=== PATIENT | female | born 1960 | race Caucasian/White ===

== ENCOUNTER 2016-07-11 07:07 | Day surgery (SDC) | payer OTHER ==
[2016-07-11 07:54] VITALS: BMI 22.6
[2016-07-11] MEDS ORDERED: PROPOFOL 20 ML ONE ×2 (08:22)
[2016-07-11] MEDS ORDERED: LIDOCAINE HCL 2% (20ML MULTI-DOSE VIAL) NR ONE (08:38)
[2016-07-11] MEDS ORDERED: DEXAMETHASONE SOD PHOSPHATE 10 MG/1 ML VIAL ONE (09:07)
[2016-07-11 09:24] VITALS: TEMP 97.5
[2016-07-11 15:38] VITALS: BP 136/76; PULSE 90
--- NOTE | 2016-07-12 11:41 | PATH ---
Surgical Pathology Report Patient Name: JAMIL TATE [facility]. Rec. #: [id number] /Age/Gender: 1960 (Age: 55) / F Account: [id number] Location: [facility]-ENDOSCOPY Taken: 07/11/2016 Received: 07/11/2016 Reported: 07/12/2016 Physicians: Harry Alcantar M.D. Specimen(s) Received A: BX DUODENUM B: BX BODY OF STOMACH ERYTHEMA C: BX DISTAL ESOPHAGUS Clinical History History of Huitron's esophagus Normal EG junction, erythema in body, gastritis Final Diagnosis A. DUODENUM, BIOPSY: DUODENAL MUCOSA WITH NO PATHOLOGIC CHANGES. NO HISTOLOGIC EVIDENCE OF GLUTEN SENSITIVE ENTEROPATHY (CELIAC SPRUE) IDENTIFIED. B. STOMACH, BODY, BIOPSY: GASTRIC FUNDIC MUCOSA WITH FOCAL MILD CHRONIC GASTRITIS. IMMUNOSTAIN FOR H. PYLORI IS NEGATIVE. C. DISTAL ESOPHAGUS, BIOPSY: SQUAMOUS AND GLANDULAR MUCOSA WITH CHRONIC INFLAMMATION AND FOCAL INTESTINAL METAPLASIA CONSISTENT WITH HUITRON'S ESOPHAGUS IN THE PROPER CLINICAL CONTEXT. NO DYSPLASIA IDENTIFIED. Electronically Signed Og Bonilla M.D. Gross Description A. Received in formalin, labeled "biopsy duodenum" are 2 arreaga, irregular portions of soft tissue averaging 0.3 cm. in greatest dimension. The specimens are submitted in toto in one cassette. B. Received in formalin, labeled "biopsy body of stomach" are 2 arreaga, irregular portions of soft tissue averaging 0.4 cm. in greatest dimension. The specimens are submitted in toto in one cassette. C. Received in formalin, labeled "biopsy distal esophagus" are 3 arreaga, irregular portions of soft tissue ranging from 0.3-0.4 cm. in greatest dimension. The specimens are submitted in toto in one cassette. /07/11/2016 saudi07/11/2016
== END 2016-07-11 11:05 | disposition home or self-care (01) ==
LOC: JASU-ENDO 07:07
PROVIDERS: ATTEND Internal Medicine Gastroenterology
PROC: 0DB68ZX Excision of Stomach, Via Natural or Artificial Opening Endoscopic, Diagnostic (ICD-10-PCS; 2016-07-11)
PROC: 0DB58ZX Excision of Esophagus, Via Natural or Artificial Opening Endoscopic, Diagnostic (ICD-10-PCS; 2016-07-11)
PROC: 0DB98ZX Excision of Duodenum, Via Natural or Artificial Opening Endoscopic, Diagnostic (ICD-10-PCS; principal; 2016-07-11 09:00)
DX: K22.70 Barrett's esophagus without dysplasia (principal); K31.89 Other diseases of stomach and duodenum
CPT/HCPCS: 88305-TC; 88342-TC

== ENCOUNTER 2016-09-29 15:12 | Emergency (ER) | payer OTHER ==
[2016-09-29 15:24] VITALS: BP 117/68; PULSE 80; TEMP 98; BMI 22.6
--- NOTE | 2016-09-29 15:47 | PDOC ---
History of Present Illness - General Chief Complaint: Head/Neck problem Stated Complaint: FACIAL NUMBNESS/ HX OF FACIAL PARALYSIS Time Seen by Provider: 09/29/16 15:34 History Source: Patient, Family - History of Present Illness Timing/Duration: 1-3 hours Past History - Past Medical History Allergies/Adverse Reactions: Allergies Allergy/AdvReac Type Severity Reaction Status Date / Time lidocaine Allergy Rash Verified 09/29/16 15:25 propofol Allergy Rash Verified 09/29/16 15:25 Home Medications: Ambulatory Orders Levothyroxine [Synthroid -] 50 mcg PO DAILY 07/21/15 Pantoprazole Sodium [Protonix] 80 mg PO DAILY 07/21/15 Simvastatin 10 mg PO HS 07/21/15 Calcium (Oyster Shell) [Os-Joe 500MG -] 1 tab PO DAILY 07/11/16 Mv-Mn/Iron/FA/Herbal Cmplx#190 [Vitamin D3 Complete Caplet] 1 each PO DAILY 04/28 [place]-3 Fatty Acids [[place]-3] 1,000 mg PO DAILY 07/11/16 CVA: Yes (TIA) GI Disorders: Yes (GERD, diverticulosis) Thyroid Disease: Yes - Surgical History Appendectomy: Yes - Psycho/Social/Smoking Cessation Hx Anxiety: No Suicidal Ideation: No Smoking Status: No Smoking History: Never smoked Have you smoked in the past 12 months: No Number of Cigarettes Smoked Daily: 0 Information on smoking cessation initiated: No Hx Alcohol Use: No Drug/Substance Use Hx: No Substance Use Type: None Hx Substance Use Treatment: No *Physical Exam - Vital Signs Last Vital Signs Temp Pulse Resp BP Pulse Ox 98 F 80 18 117/68 96 09/29/16 15:21 09/29/16 15:21 09/29/16 15:21 09/29/16 15:21 09/29/16 15:21 ED Treatment Course - LABORATORY CBC & Chemistry Diagram: 09/29/16 17:17 09/29/16 17:17 *DC/Admit/Observation/Transfer Diagnosis at time of Disposition: Right facial numbness, Numbness and tingling - Discharge Dispostion Disposition: HOME Condition at time of disposition: Good Admit: No - Patient Instructions Printed Discharge Instructions: DI for Numbness/tingling Additional Instructions: Please return to the ED immediately if you notice confusion, slurred speech, numbness in your arms or legs or chest pain. Please follow up with your PCP and tell them about your symptoms and ask for follow-up care.
--- NOTE | 2016-09-29 16:05 | PDOC ---
Attending Attestation - Resident Resident Name: Janina Murphy - ED Attending Attestation I have performed the following: I have examined & evaluated the patient, The case was reviewed & discussed with the resident, I agree w/resident's findings & plan, Exceptions are as noted NIH Stroke Scale - Last Known Well Date/Time & Onset Date Last Known Well: 09/29/16 - Initial Evaluation Level of consciousness: Alert Ask patient the month and their age: Answers both correctly Ask patient to open & close eyes; make fist and let go: Obeys both correctly Best gaze (horizontal eye movement): Normal Visual field testing: No visual field loss Facial paresis (Show teeth/raise eyebrows/close eyes tight): Normal symmetrical movement Motor Function: Left Arm: Normal Motor Function: Right Arm: Normal (extends arm 90 (or 45) degrees for 10 seconds without drift Motor Function: Left Leg: Normal (extends leg 30 degrees for 5 seconds without drift) Motor Function: Right Leg: Normal (extends leg 30 degrees for 5 seconds without drift) Limb Ataxia: No ataxia Sensory(Use pinprick test arms,legs,trunk,face/side to side): Normal Best language (Describe picture, name items, read sentences): No Aphasia Dysarthria (read several words): Normal articulation Extinction and Inattention: No abnormality - Total Score NIH Stroke Scale Score: 0
[2016-09-29 17:26] LABS: MCH 31.1 pg (25.7-33.7); MCHC 33.8 g/dl (32.0-36.0); MEAN PLT VOLUME 9.4 fl (7.5-11.1); PLATELET COUNT 235 K/MM3 (134-434); RDW 12.5 % (11.6-15.6); WHITE BLOOD COUNT 6.8 K/mm3 (4.0-10.0)
[2016-09-29 17:56] LABS: ANION GAP 9 (8-16); CO2 26 mmol/L (21-32); CREATININE 0.7 mg/dL (0.55-1.02); GLUCOSE,RANDOM 129 mg/dL (74-106)
== END 2016-09-29 18:15 | disposition home or self-care (01) ==
LOC: JER 15:12
DX: R20.0 Anesthesia of skin (principal); R20.2 Paresthesia of skin; Z86.73 Personal history of transient ischemic attack (TIA), and cerebral infarction without residual deficits; K21.9 Gastro-esophageal reflux disease without esophagitis; E07.9 Disorder of thyroid, unspecified
CPT/HCPCS: 36415; 70450-TC; 80048; 85027; 99282-25

== ENCOUNTER 2016-11-05 23:51 | Inpatient (IN) | payer OTHER ==
[2016-11-06 00:11] VITALS: BMI 23.3
[2016-11-06] MEDS ORDERED: SODIUM CHLORIDE 0.9% 1000 ML INFUS.BAG IV STA (00:43)
--- NOTE | 2016-11-06 01:54 | PDOC ---
History of Present Illness - General History Source: Patient Exam Limitations: No Limitations - History of Present Illness Initial Comments: 11/06/16 01:54 The patient is a 56 year old female with a significant past medical history of Pike Palsy and diverticulitis who presents to the ED with complaints of fever since earlier today. The patient reports a fever of 102 F earlier today with chills and headache. She reports taking tylenol 3 times throughout the day, last dosage at 11 pm, with slight relief of present symptoms. Patient also reports a diffuse burning-like sensation in her abdomen and tingling in her bilateral legs. Patient also reports she is on her 5th day of antibiotics for a UTI and reports dysuria and urinary frequency. Denies nausea, vomiting, or diarrhea. Denies chest pain or shortness of breath. Denies any other symptoms. Surgical hx: Appendectomy, thyroid removal <Arslan Faith - Last Filed: 11/06/16 01:54> <Nasrin Wen - Last Filed: 11/06/16 02:06> <Nasreen Kuhn - Last Filed: 11/06/16 06:49> - General Chief Complaint: SIRS, Suspected/Possible Stated Complaint: FEVER Time Seen by Provider: 11/06/16 00:19 Past History <Arslan Faith - Last Filed: 11/06/16 01:54> - Past Medical History CVA: Yes (TIA) GI Disorders: Yes (GERD, diverticulosis) Thyroid Disease: Yes - Surgical History Appendectomy: Yes - Psycho/Social/Smoking Cessation Hx Anxiety: No Suicidal Ideation: No Smoking Status: No Smoking History: Never smoked Have you smoked in the past 12 months: No Number of Cigarettes Smoked Daily: 0 Hx Alcohol Use: No Drug/Substance Use Hx: No Substance Use Type: None Hx Substance Use Treatment: No <Nasrin Wen - Last Filed: 11/06/16 02:06> <Nasreen Kuhn - Last Filed: 11/06/16 06:49> - Past Medical History Allergies/Adverse Reactions: Allergies Allergy/AdvReac Type Severity Reaction Status Date / Time lidocaine Allergy Rash Verified 11/06/16 00:09 propofol Allergy Rash Verified 11/06/16 00:09 Home Medications: Ambulatory Orders Levothyroxine [Synthroid -] 50 mcg PO DAILY 05/11/16 Pantoprazole Sodium [Protonix] 80 mg PO DAILY 07/21/15 Simvastatin 10 mg PO HS 07/21/15 Calcium (Oyster Shell) [Os-Joe 500MG -] 1 tab PO DAILY 07/11/16 Mv-Mn/Iron/FA/Herbal Cmplx#190 [Vitamin D3 Complete Caplet] 1 each PO DAILY 04/28 [place]-3 Fatty Acids [[place]-3] 1,000 mg PO DAILY 07/11/16 Review of Systems - Review of Systems Able to Perform ROS?: Yes Comments:: 11/06/16 01:54 CONSTITUTIONAL: + fever, chills No reported:,Diaphoresis, Generalized Weakness, Malaise, Loss of Appetite HEENT: No reported: Rhinorrhea, Nasal Congestion, Throat Pain, Throat Swelling, Difficulty Swallowing, Mouth Swelling, Ear Pain, Eye Pain, Visual Changes CARDIOVASCULAR: No reported: Chest Pain, Syncope, Palpitations, Irregular Heart Rate, Lightheadedness, Peripheral Edema RESPIRATORY: No reported: Cough, Shortness of Breath, SOB with Exertion, Orthopnea, Wheezing , Stridor, Hemoptysis GASTROINTESTINAL: + abdominal pain No reported: Abdominal Distension, Nausea, Vomiting, Diarrhea, Constipation, Melena, Hematochezia GENITOURINARY: + dysuria, frequency No reported: Urgency, Hesitancy, Flank Pain, Genital Pain MUSCULOSKELETAL: No reported: Myalgia, Arthralgia, Joint Swelling, Back pain, Neck Pain SKIN: No reported: Rash, Itching, Pallor HEMEATOLOGIC/IMMUNOLOGIC: No reported: Easy Bleeding, Easy Bruising, Lymphadenopathy, Frequent infections ENDOCRINE: No reported: Unexplained Weight Gain, Unexplained Weight Loss, Heat Intolerance , Cold Intolerance NEUROLOGIC: + headache, leg tingling No reported:, Paresthesias, Vertigo, Lightheadedness, Unsteady Gait, Seizure, Mental Status Changes, Incontinence PSYCHIATRIC: No reported: Anxiety, Depression All Other Systems: Reviewed and Negative <Arslan Faith - Last Filed: 11/06/16 01:54> *Physical Exam - Vital Signs Last Vital Signs Temp Pulse Resp BP Pulse Ox 100.3 F H 111 H 20 132/79 98 11/06/16 00:09 11/06/16 00:09 11/06/16 00:09 11/06/16 00:09 11/06/16 00:09 - Physical Exam Comments: 11/06/16 01:55 GENERAL: Well developed, well nourished. Awake and alert. No acute distress. HEENT: Normocephalic, atraumatic. PERRLA, EOMI. No conjunctival pallor. Sclera are non- icteric. Moist mucous membranes. Oropharynx is clear. NECK: Supple. Full ROM. No JVD. Carotid pulses 2+ and symmetric, without bruits. No thyromegaly. No lymphadenopathy. CARDIOVASCULAR:+ tachycardic, Regular rhythm. No murmurs, rubs, or gallops. Distal pulses are 2+ and symmetric. PULMONARY: No evidence of respiratory distress. Lungs clear to auscultation bilaterally. No wheezing, rales or rhonchi. ABDOMINAL: Soft. Non-tender. Non-distended. No rebound or guarding. No organomegaly. Normoactive bowel sounds. MUSCULOSKELETAL Normal range of motion at all joints. No bony deformities or tenderness. No CVA tenderness. EXTREMITIES: No cyanosis. No clubbing. No edema. No calf tenderness. SKIN: + Warm to touch, and dry. Normal capillary refill. No rashes. No jaundice. NEUROLOGICAL: Alert, awake, appropriate. Cranial nerves 2-12 intact. No deficits to light touch and temperature in face, upper extremities and lower extremities. No motor deficits in the in face, upper extremities and lower extremities. Normoreflexic in the upper and lower extremities. Normal speech. Toes are down- going bilaterally. Gait is normal without ataxia. PSYCHIATRIC: Cooperative. Good eye contact. Appropriate mood and affect. <Arslan Faith - Last Filed: 11/06/16 01:54> - Vital Signs Last Vital Signs Temp Pulse Resp BP Pulse Ox 100.3 F H 111 H 20 132/79 98 11/06/16 00:09 11/06/16 00:09 11/06/16 00:09 11/06/16 00:09 11/06/16 00:09 <Nasrin Wen - Last Filed: 11/06/16 02:06> - Vital Signs Last Vital Signs Temp Pulse Resp BP Pulse Ox 100.3 F H 111 H 20 132/79 98 11/06/16 00:09 11/06/16 00:09 11/06/16 00:09 11/06/16 00:09 11/06/16 00:09 <Nasreen Kuhn - Last Filed: 11/06/16 06:49> ED Treatment Course - RADIOLOGY Radiology Studies Ordered: Category Date Time Status CHEST X-RAY PORTABLE* [RAD] Stat Radiology 11/06/16 00:43 Taken <Nasrin Wen - Last Filed: 11/06/16 02:06> - LABORATORY CBC & Chemistry Diagram: 11/06/16 02:30 11/06/16 02:30 - ADDITIONAL ORDERS Additional order review: Laboratory Results 11/06/16 11/06/16 11/06/16 02:30 02:30 02:30 INR PTT (Actin FS) Sodium 139 Potassium 3.3 L Chloride 106 Carbon Dioxide 24 Anion Gap 9 BUN 10 D Creatinine 0.7 Creat Clearance w eGFR > 60 Random Glucose 126 H D Lactic Acid 0.7 Calcium 8.5 Total Bilirubin 0.6 AST 23 D ALT 28 Alkaline Phosphatase 76 Creatine Kinase 235 H Creatine Kinase Index 0.4 CK-MB (CK-2) < 1.000 Troponin I < 0.02 Total Protein 7.2 Albumin 3.4 Urine Color Yellow Urine Appearance Slcloudy Urine pH 6.0 Urine Protein 1+ H Urine Glucose (UA) Negative Urine Ketones Negative Urine Blood 3+ H Urine Nitrite Negative Urine Bilirubin Negative Urine Urobilinogen Negative Ur Leukocyte Esterase 1+ H Urine RBC 26 Urine WBC 8 Ur Epithelial Cells Rare Urine Bacteria Moderate Hyaline Casts 3 Urine Mucus Rare 11/06/16 02:30 INR 1.18 H PTT (Actin FS) 29.9 Sodium Potassium Chloride Carbon Dioxide Anion Gap BUN Creatinine Creat Clearance w eGFR Random Glucose Lactic Acid Calcium Total Bilirubin AST ALT Alkaline Phosphatase Creatine Kinase Creatine Kinase Index CK-MB (CK-2) Troponin I Total Protein Albumin Urine Color Urine Appearance Urine pH Urine Protein Urine Glucose (UA) Urine Ketones Urine Blood Urine Nitrite Urine Bilirubin Urine Urobilinogen Ur Leukocyte Esterase Urine RBC Urine WBC Ur Epithelial Cells Urine Bacteria Hyaline Casts Urine Mucus 11/06/16 02:30 RBC 4.25 MCV 92.2 MCHC 33.9 RDW 12.6 MPV 9.3 Neutrophils % 86.4 H D Lymphocytes % 6.0 L D Monocytes % 7.3 Eosinophils % 0.0 D Basophils % 0.3 - Medications Given in the ED: ED Medications Discontinued Medications Generic Name Dose Route Start Last Admin Trade Name Freq PRN Reason Stop Dose Admin Sodium Chloride 1,270 ml 11/06/16 00:43 11/06/16 03:07 Normal Saline - IV 11/06/16 00:44 1,270 ml ONCE STA Administration <Nasreen Kuhn - Last Filed: 11/06/16 06:49> Medical Decision Making - Medical Decision Making 11/06/16 02:06 56-year-old female has had fever for one day. States that she is currently being treated for a urinary tract infection. - About 5 days ago she was placed on cefuroxime for urinary tract infection Patient has complaint of fever, chills, numbness of both legs, abdominal pain, dysuria She was seen here on September 29 for facial numbness, CAT scan of her head at that time was negative Plan is to have CBC, chemistry, urinalysis done <Nasrin Wen - Last Filed: 11/06/16 02:06> - Medical Decision Making 11/06/16 06:48 Pt failed outpatient therapy for her UTI; 5 days of abx and she still has dysuria and burning sensation. She will be admitted for IV abx. <Nasreen Kuhn - Last Filed: 11/06/16 06:49> *DC/Admit/Observation/Transfer - Attestations Scribe Attestion: 11/06/16 01:55 Documentation prepared by Arslan Faith, acting as medical scientist for Nasrin Wen MD <Arslan Faith - Last Filed: 11/06/16 01:54> <Nasrin Wen - Last Filed: 11/06/16 02:06> - Discharge Dispostion Admit: Yes <Nasreen Kuhn - Last Filed: 11/06/16 06:49> Diagnosis at time of Disposition: Urinary frequency, UTI (urinary tract infection), Cystitis, Fever
[2016-11-06 02:47] LABS: URINE APPEARANCE SLCLOUDY; URINE BILIRUBIN NEGATIVE (NEGATIVE); URINE BLOOD 3+ (NEGATIVE); URINE COLOR YELLOW; URINE GLUCOSE (UA) NEGATIVE (NEGATIVE); URINE KETONE NEGATIVE (NEGATIVE); URINE NITRITE NEGATIVE (NEGATIVE); URINE UROBILINOGEN NEGATIVE mg/dL (0.2-1.0)
[2016-11-06 02:48] LABS: BASOPHIL 0.3 % (0-2.0); MCH 31.2 pg (25.7-33.7); MCHC 33.9 g/dl (32.0-36.0); MEAN CELL VOLUME 92.2 fl (80-96); MEAN PLT VOLUME 9.3 fl (7.5-11.1); NEUTROPHILS 86.4 % (42.8-82.8); PLATELET COUNT 223 K/MM3 (134-434); RDW 12.6 % (11.6-15.6); WHITE BLOOD COUNT 16.7 K/mm3 (4.0-10.0)
[2016-11-06 02:54] LABS: URINE LEUK ESTERASE 1+ (NEGATIVE); URINE PROTEIN 1+ (NEGATIVE)
[2016-11-06 02:58] LABS: URINE BACTERIA MODERATE /hpf (NONE SEEN); URINE HYALINE CAST 3 /lpf; URINE MUCUS RARE; URINE RBC 26 /hpf (0-3); URINE WBC 8 /hpf (3-5)
[2016-11-06 02:59] LABS: INR 1.18 (0.82-1.09)
[2016-11-06 03:01] LABS: ACTIVATED PTT 29.9 SECONDS (26.9-34.4)
[2016-11-06 03:09] LABS: ALBUMIN 3.4 g/dl (3.4-5.0); ANION GAP 9 (8-16); BILIRUBIN,TOTAL 0.6 mg/dL (0.2-1.0); CALCIUM 8.5 mg/dL (8.5-10.1); CO2 24 mmol/L (21-32); CREATININE 0.7 mg/dL (0.55-1.02); GLUCOSE,RANDOM 126 mg/dL (74-106); SGOT/AST 23 U/L (15-37); SGPT/ALT 28 U/L (12-78); TOT PROT 7.2 g/dl (6.4-8.2)
[2016-11-06 03:11] LABS: ALK PHOS 76 U/L (45-117); CPK 235 IU/L (26-192); TROPONIN I < 0.02 ng/ml (0.00-0.05)
[2016-11-06] MEDS ORDERED: PIPERACILLIN/TAZOB 3.375 GM 3.375 GM in DEXTROSE 5%-WATER - 50 ML IVPB ONE (03:45)
[2016-11-06] MEDS ORDERED: LEVOFLOXACIN 500 MG IVPB 100 ML IVPB ONE ×2 (03:47→04:48)
[2016-11-06] MEDS ORDERED: LEVOFLOXACIN 750 MG IVPB 150 ML IVPB ONE (04:46)
--- NOTE | 2016-11-06 05:59 | HP ---
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 Pt reports a Tmax of 102F. She took Tylenol 3 times (last dose at 11pm) and the medication helped improve her symptoms. Pt presents to ER with chills, headache, burning sensation diffusely in abdomen, and marjorie LE tingling. All of these symptoms are new as of this evening. Pt reports being diagnosed with a UTI 5 days ago and taking Cefuroxime as directed. Denies chest pain, palpitations, SOB, nausea, vomiting, diarrhea. ER course was notable for: (1) fever of 100.3F upon arrival has resolved (2) Levaquin, Zosyn (3) CXR pending PAST MEDICAL HISTORY: Sage's Palsy/CVA/TIA GERD diverticulosis thyroid disease hypercholesterolemia PAST SURGICAL HISTORY: appendectomy thyroidectomy 2 yrs ago Social History: Smoking: never smoker Alcohol: none Drugs: none Allergies lidocaine Allergy (Verified 11/06/16 00:09) Rash propofol Allergy (Verified 11/06/16 00:09) Rash HOME MEDICATIONS: Home Medications Medication Instructions Recorded Levothyroxine [Synthroid -] 50 mcg PO DAILY 07/21/15 Pantoprazole Sodium [Protonix] 80 mg PO DAILY 07/21/15 Simvastatin 10 mg PO HS 07/21/15 Calcium (Oyster Shell) [Os-Joe 1 tab PO DAILY 07/11/16 500MG -] Mv-Mn/Iron/FA/Herbal Cmplx#190 1 each PO DAILY 07/11/16 [Vitamin D3 Complete Caplet] [place]-3 Fatty Acids [[place]-3] 1,000 mg PO DAILY 07/11/16 REVIEW OF SYSTEMS CONSTITUTIONAL: Present: fever, chills Absent: diaphoresis, generalized weakness, malaise HEENT: Absent: throat pain, ear pain, eye pain, visual changes CARDIOVASCULAR: Absent: chest pain, syncope, palpitations, irregular heart rate, lightheadedness , peripheral edema RESPIRATORY: Absent: cough, shortness of breath, dyspnea with exertion, orthopnea, wheezing, stridor, hemoptysis GASTROINTESTINAL: Present: abdominal pain - burning sensation Absent: abdominal distension, nausea, vomiting, diarrhea, constipation, melena, hematochezia GENITOURINARY: Present: dysuria, frequency Absent: urgency, hesitancy, hematuria, genital pain MUSCULOSKELETAL: Absent: myalgia, arthralgia, joint swelling, back pain, neck pain SKIN: Absent: rash, itching, pallor ENDOCRINE: Absent: unexplained weight gain, unexplained weight loss, heat intolerance, cold intolerance NEUROLOGIC: Present: headache Absent: focal weakness or paresthesias, dizziness, unsteady gait, bladder or bowel incontinence PSYCHIATRIC: Absent: anxiety, depression. PHYSICAL EXAMINATION Vital Signs - 24 hr 11/06/16 11/06/16 11/06/16 00:09 01:00 02:15 Temperature 100.3 F H 99.0 F 99.5 F Pulse Rate 111 H Pulse Rate [ 100 H 98 H Apical] Respiratory 20 18 20 Rate Blood Pressure 132/79 Blood Pressure 150/67 149/70 [Right Arm] O2 Sat by Pulse 98 99 99 Oximetry (%) 11/06/16 11/06/16 03:42 04:55 Temperature 97.5 F L 98.5 F Pulse Rate Pulse Rate [ 95 H 101 H Apical] Respiratory 20 20 Rate Blood Pressure Blood Pressure 148/66 154/86 [Right Arm] O2 Sat by Pulse 98 100 Oximetry (%) GENERAL: Awake, alert, and fully oriented, in no acute distress. HEAD: Normal with no signs of trauma. EYES: Pupils equal, round and reactive to light, extraocular movements intact, sclera anicteric, conjunctiva clear. EARS, NOSE, THROAT: Moist mucous membranes. NECK: Supple without lymphadenopathy, JVD, or masses. LUNGS: Breath sounds equal, clear to auscultation bilaterally. No wheezes, and no crackles. No accessory muscle use. HEART: Regular rate and rhythm, normal S1 and S2 without murmur, rub or gallop. ABDOMEN: Soft, nontender to palpation, not distended, normoactive bowel sounds, no guarding, no rebound, no masses. MUSCULOSKELETAL: (+) marjorie CVA tenderness, Right sided flank pain. Normal range of motion at all joints. LOWER EXTREMITIES: Warm, well-perfused. No calf tenderness. No peripheral edema. NEUROLOGICAL: Cranial nerves II-XII grossly intact. Normal speech. Normal gait. PSYCHIATRIC: Cooperative. Good eye contact. Appropriate mood and affect. SKIN: Warm, dry, normal turgor, no rashes or lesions noted. Laboratory Last Values WBC 16.7 K/mm3 (4.0-10.0) H D 11/06/16 02:30 RBC 4.25 M/mm3 (3.60-5.2) 11/06/16 02:30 Hgb 13.3 GM/dL (10.7-15.3) 11/06/16 02:30 Hct 39.1 % (32.4-45.2) 11/06/16 02:30 MCV 92.2 fl (80-96) 11/06/16 02:30 MCH 31.2 pg (25.7-33.7) 11/06/16 02:30 MCHC 33.9 g/dl (32.0-36.0) 11/06/16 02:30 RDW 12.6 % (11.6-15.6) 11/06/16 02:30 Plt Count 223 K/MM3 (134-434) 11/06/16 02:30 MPV 9.3 fl (7.5-11.1) 11/06/16 02:30 Neutrophils % 86.4 % (42.8-82.8) H D 11/06/16 02:30 Lymphocytes % 6.0 % (8-40) L D 11/06/16 02:30 Monocytes % 7.3 % (3.8-10.2) 11/06/16 02:30 Eosinophils % 0.0 % (0-4.5) D 11/06/16 02:30 Basophils % 0.3 % (0-2.0) 11/06/16 02:30 INR 1.18 (0.82-1.09) H 11/06/16 02:30 PTT (Actin FS) 29.9 SECONDS (26.9-34.4) 11/06/16 02:30 Sodium 139 mmol/L (136-145) 11/06/16 02:30 Potassium 3.3 mmol/L (3.5-5.1) L 11/06/16 02:30 Chloride 106 mmol/L (98-107) 11/06/16 02:30 Carbon Dioxide 24 mmol/L (21-32) 11/06/16 02:30 Anion Gap 9 (8-16) 11/06/16 02:30 BUN 10 mg/dL (7-18) D 11/06/16 02:30 Creatinine 0.7 mg/dL (0.55-1.02) 11/06/16 02:30 Creat Clearance w eGFR > 60 (>60) 11/06/16 02:30 Random Glucose 126 mg/dL (74-106) H D 11/06/16 02:30 Lactic Acid 0.7 mmol/L (0.4-2.0) 11/06/16 02:30 Calcium 8.5 mg/dL (8.5-10.1) 11/06/16 02:30 Total Bilirubin 0.6 mg/dL (0.2-1.0) 11/06/16 02:30 AST 23 U/L (15-37) D 11/06/16 02:30 ALT 28 U/L (12-78) 11/06/16 02:30 Alkaline Phosphatase 76 U/L (45-117) 11/06/16 02:30 Creatine Kinase 235 IU/L (26-192) H 11/06/16 02:30 Creatine Kinase Index 0.4 % (0.0-5.0) 11/06/16 02:30 CK-MB (CK-2) < 1.000 ng/mL (0.5-3.6) 11/06/16 02:30 Troponin I < 0.02 ng/ml (0.00-0.05) 11/06/16 02:30 Total Protein 7.2 g/dl (6.4-8.2) 11/06/16 02:30 Albumin 3.4 g/dl (3.4-5.0) 11/06/16 02:30 Urine Color Yellow 11/06/16 02:30 Urine Appearance Slcloudy 11/06/16 02:30 Urine pH 6.0 (5.0-8.0) 11/06/16 02:30 Urine Protein 1+ (NEGATIVE) H 11/06/16 02:30 Urine Glucose (UA) Negative (NEGATIVE) 11/06/16 02:30 Urine Ketones Negative (NEGATIVE) 11/06/16 02:30 Urine Blood 3+ (NEGATIVE) H 11/06/16 02:30 Urine Nitrite Negative (NEGATIVE) 11/06/16 02:30 Urine Bilirubin Negative (NEGATIVE) 11/06/16 02:30 Urine Urobilinogen Negative mg/dL (0.2-1.0) 11/06/16 02:30 Ur Leukocyte Esterase 1+ (NEGATIVE) H 11/06/16 02:30 Urine RBC 26 /hpf (0-3) 11/06/16 02:30 Urine WBC 8 /hpf (3-5) 11/06/16 02:30 Ur Epithelial Cells Rare /hpf (FEW) 11/06/16 02:30 Urine Bacteria Moderate /hpf (NONE SEEN) 11/06/16 02:30 Hyaline Casts 3 /lpf 11/06/16 02:30 Urine Mucus Rare 11/06/16 02:30 IMAGIN11/06/16 CXR pending, appears negative normal. ASSESSMENT/PLAN: 56yo F with PMH of Sage's Palsy, GERD, diverticulosis presents c/o fever/chills admitted to Med-Surg Observation for possible sepsis. 1) sepsis - likely 2/2 pyelonephrosis complicated UTI vs hydronephrosis vs nephrolithiasis vs diverticulitis - sepsis 2/2 tachycardia and leukocytosis with left-shift, plus UTI as suspected source of infection - pt failed outpatient antibiotics for UTI - given Zosyn and Levaquin in ER - cont. Levaquin 750mg IV daily - blood and urine cultures pending - NS @ 100 ml/hr for hydration - f/u renal US - consider ab/pelvic CT - Tylenol 650mg q4hr prn for pain (headache) or fever 2) GERD - cont. home med of Protonix 80mg PO daily 3) thyroid disease - S/P thyroidectomy - cont. home med of Synthroid 50mcg PO daily 4) hypercholesterolemia - cont. home med of Simvastatin 10mg PO HS 5) FEN - Fluids: NS @ 100 ml/hr - Electrolytes: hypokalemia noted -> supplement with 20meq KCl IVPB once. - Nutrition: npo for now 6) Prophylaxis - marjorie SCDs for DVT prophylaxis Visit type - Emergency Visit Emergency Visit: Yes ED Registration Date: 11/06/16 Care time: The patient presented to the Emergency Department on the above date and was hospitalized for further evaluation of their emergent condition. - New Patient This patient is new to me today: Yes Date on this admission: 11/06/16 - Critical Care Critical Care patient: No
--- NOTE | 2016-11-06 06:35 | PN ---
Teaching Attending Note Name of Resident: Richelle Acevedo ATTENDING PHYSICIAN STATEMENT I saw and evaluated the patient. I reviewed the resident's note and discussed the case with the resident. I agree with the resident's findings and plan as documented. SUBJECTIVE: 56 year old female that presents c/o urinary urgency , right flank pain and fever 5 days after being diagnosed with UTI and taking Keflex prescribed by PMD . PAST MEDICAL HISTORY: Sage's Palsy/CVA/TIA GERD diverticulosis thyroid disease hypercholesterolemia PAST SURGICAL HISTORY: appendectomy thyroidectomy 2 yrs ago Social History: Smoking: never smoker Alcohol: none Drugs: none OBJECTIVE: Vital Signs Temperature 98.5 F 11/06/16 04:55 Pulse Rate 101 H 11/06/16 04:55 Respiratory Rate 20 11/06/16 04:55 Blood Pressure 154/86 11/06/16 04:55 O2 Sat by Pulse Oximetry (%) 100 11/06/16 04:55 EYES: Pupils equal, round and reactive to light, extraocular movements intact, sclera anicteric, conjunctiva clear. EARS, NOSE, THROAT: Moist mucous membranes. NECK: Supple without lymphadenopathy, JVD, or masses. LUNGS: Breath sounds equal, clear to auscultation bilaterally. No wheezes, and no crackles. No accessory muscle use. HEART: Regular rate and rhythm, normal S1 and S2 without murmur, rub or gallop. ABDOMEN: Soft, nontender to palpation, not distended, normoactive bowel sounds, no guarding, no rebound, no masses. MUSCULOSKELETAL: (+) R CVA tenderness Normal range of motion at all joints. LOWER EXTREMITIES: Warm, well-perfused. No calf tenderness. No peripheral edema. CBC, BMP 11/06/16 02:30 11/06/16 02:30 ASSESSMENT AND PLAN: 1. Suspected acute pyelonephritis vs complicated UTI - failure of outpatient antibiotics - IV levaquin - US renal - cultures 2. Sepsis 2/ #1 - IVF 3. Hypokalemia -supplement
[2016-11-06] MEDS ORDERED: POTASSIUM CHLORIDE 20 MEQ PREMIX IVPB 100 ML IVPB ONE (06:41)
[2016-11-06] MEDS: SODIUM CHLORIDE 1,000 ML IV SCH ×2 (06:59→13:19)
[2016-11-06] MEDS ORDERED: PIPERACILLIN/TAZOB 3.375 GM 50 ML IVPB ONE (07:01)
[2016-11-06] MEDS ORDERED: KCL 10 MEQ IVPB 200 ML IVPB ONE (07:01)
[2016-11-06 08:27] LABS: VENOUS PH 7.29 (7.32-7.42)
[2016-11-06 08:28] LABS: VENOUS BLOOD GAS HCO3 23.6 meq/L (19-25)
[2016-11-06] MEDS ORDERED: PANTOPRAZOLE 40 MG TABLET (FP) PO SCH (10:00)
[2016-11-06] MEDS ORDERED: CALCIUM (OYSTER SHELL) 500 MG TABLET (FP) PO SCH (10:00)
--- NOTE | 2016-11-06 10:18 | PN ---
Progress Note, Physician Chief Complaint: ID Full noted dictated Fever and chills over the few days. She sees Dr Foley urology Has been on oral cefuroxime most recently Last seen 11/01. 6 month history of urinary symptoms CT abd was normal cytolgy neg. E Coli sensitive to Ceftin No improvement on ceftin . Cystoscopy hemmoragic cystitis dilated urethra so ceftin once daily. No masses seen Liver hemangioma - Current Medication List Current Medications: Active Medications Acetaminophen (Tylenol -) 650 mg PO Q4H PRN PRN Reason: FEVER OR PAIN Atorvastatin Calcium (Lipitor -) 10 mg PO HS [facility] Calcium Carbonate (Os-Joe 500mg -) 500 mg PO DAILY [facility] Sodium Chloride (Normal Saline -) 1,000 mls @ 100 mls/hr IV ASDIR [facility] Last Admin: 11/06/16 06:59 Dose: 100 mls/hr Levofloxacin (Levaquin 750 Mg Premixed Ivpb -) 150 mls @ 100 mls/hr IVPB DAILY [facility] Levothyroxine Sodium (Synthroid -) 50 mcg PO DAILY@0700 [facility] Pantoprazole Sodium (Protonix -) 80 mg PO DAILY [facility] - Objective Vital Signs: Vital Signs Temperature 98.5 F 11/06/16 04:55 Pulse Rate 99 H 11/06/16 06:39 Respiratory Rate 19 11/06/16 06:39 Blood Pressure 140/70 11/06/16 06:39 O2 Sat by Pulse Oximetry (%) 100 11/06/16 06:39 Gastrointestinal: Yes: WNL, Normal Bowel Sounds, Soft, Other (Lower abd pain bilaterall and suprapubic). No: Tenderness, Tenderness, Rebound Genitourinary: Yes: CVA Tenderness - Left, CVA Tenderness - Right Labs: INR, PTT INR 1.18 (0.82-1.09) H 11/06/16 02:30 Problem List - Problems (1) UTI (urinary tract infection) Code(s): N39.0 - URINARY TRACT INFECTION, SITE NOT SPECIFIED (2) Pyelonephritis Code(s): N12 - TUBULO-INTERSTITIAL NEPHRITIS, NOT SPCF ACUTE OR CHRONIC Assessment/Plan Laboratory Tests 11/06/16 11/06/16 11/06/16 02:30 02:30 02:30 WBC 16.7 H D Hgb 13.3 Hct 39.1 Plt Count 223 Neutrophils % 86.4 H D Creat Clearance w eGFR > 60 Ur Leukocyte Esterase 1+ H Urine RBC 26 Urine WBC 8 Urine Bacteria Moderate Assessment Pyelonephritis Recent cysto hemmoragic cystitis urethral dilatation Assume resistant organism Plan Zosyn pending c/s Nares screen if negative stop isolation Kathi HARTLEY
[2016-11-06 10:42] LABS: BASOPHIL 0.3 % (0-2.0); MCH 30.7 pg (25.7-33.7); MCHC 33.3 g/dl (32.0-36.0); MEAN CELL VOLUME 92.3 fl (80-96); MEAN PLT VOLUME 9.1 fl (7.5-11.1); PLATELET COUNT 199 K/MM3 (134-434); RDW 12.5 % (11.6-15.6); WHITE BLOOD COUNT 16.3 K/mm3 (4.0-10.0)
[2016-11-06 11:00] LABS: ANION GAP 10 (8-16); CALCIUM 7.8 mg/dL (8.5-10.1); CO2 22 mmol/L (21-32); CREATININE 0.6 mg/dL (0.55-1.02); GLUCOSE,RANDOM 135 mg/dL (74-106)
--- NOTE | 2016-11-06 11:09 | CONS ---
DATE OF CONSULTATION: HISTORY: This is [facility] 56[facility] I am asked to see for evaluation of fever to 102 at home and chills for which she had taken Tylenol on the day prior to admission. She also noted complaints of lower abdominal discomfort. The patient has a history of having seen Dr. Foley, Urology, in [place]. Quite recently she underwent a cystoscopy with findings of hemorrhagic cystitis. A urine culture was done, which showed Escherichia coli 40,000-50,000 colony count, and she was given oral cefuroxime. Cytology was negative for malignancy. He also did a CAT scan of the abdomen, which showed normal kidneys and no intra-abdominal pathology, stones, or hydronephrosis. Ceftin was recently reduced to once a day I assume in an effort to prophylax for recurrent UTIs, which the patient has had for some time. Over the last 2-3 days, the patient now develops fever and chills. She denies any dysuria, gross hematuria, but does have hematuria on her urinalysis. She was empirically treated with antibiotics here with levofloxacin and a dose of piperacillin and tazobactam. She is not diabetic and has no history of recent travel to [facility], outdoor exposure to ticks, respiratory complaints. No one else at home, primarily her and family, are ill. 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 HIV status is unknown. PAST MEDICAL HISTORY: Includes Sage palsy, GERD, diverticulosis, hypothyroidism, hyperlipidemia, status post appendectomy and thyroidectomy. MEDICATIONS: Levothyroxine, Protonix, simvastatin, calcium, omega-3 fatty acids. ALLERGIES: PROPOFOL. SOCIAL HISTORY: Noncontributory. No ETOH history. See present illness. FAMILY HISTORY: Reviewed and noncontributory. REVIEW OF SYSTEMS: Respiratory: No cough, shortness of breath, hemoptysis. Cardiac: No chest pain, palpitations, syncope. Gastrointestinal: No nausea, vomiting, hematemesis, blood per rectum, diarrhea. Genitourinary: Lower abdominal discomfort. No incontinence or gross hematuria. PHYSICAL EXAMINATION: General: She is an alert female in no acute distress. Vital Signs: Temperature max on admission 100.3, currently 98.5, pulse 99, blood pressure 147, respirations 19. Neck: Supple without adenopathy. Lungs: Clear to percussion and auscultation. Heart: S1, S2. Regular rhythm without audible murmur. Abdomen: Not distended. Positive bowel sounds. Soft. No rebound. Mild tenderness noted in the lower quadrants and suprapubic area. Extremities: Bilateral costovertebral angle tenderness left greater than right. LABORATORY DATA: The white count is 16.7, hemoglobin 13.3, platelets 223. INR 1.18, BUN 10, creatinine 0.7. Liver enzymes within normal limits. Urinalysis: 1+ leukocyte esterase, 26 RBCs, 8 WBCs, moderate bacteria. Blood and urine culture is pending. Renal sonogram: Bilateral normal-appearing kidneys. ASSESSMENT: A 56-year-old female with a history of recent hemorrhagic cystitis status post urethral dilatation and recurrent urinary tract infections for which she has been on once daily cefuroxime as per Dr. Foley. Recent Escherichia coli in urine culture. Previous history of methicillin-resistant Staphylococcus aureus in a soft tissue infection in her foot October 03, 2012 now no longer an issue. Would assume possible resistant organism with the diagnosis of pyelonephritis and recurrent urinary tract infection. Recent CAT scan done shows no acute pathology. PLAN: Treat empirically with Zosyn 4.5 g IV every 8 hours pending blood and urine cultures. The case was discussed in detail with Dr. Foley to appraise him of her admission to [facility] as well as to obtain further history. We will do an HIV test for completeness. JEANNIE RUSH M.D. [id number]
[2016-11-06 11:16] LABS: INR 1.36 (0.82-1.09)
[2016-11-06 11:32] LABS: CPK 182 IU/L (26-192)
[2016-11-06 12:34] LABS: HIV 1 & 2 AB NEGATIVE; HIV 1 AGp24 NEGATIVE
[2016-11-06] MEDS: LEVOTHYROXINE NA 50 MCG TABLET (FP) PO SCH (12:39)
[2016-11-06] MEDS: PANTOPRAZOLE 40 MG TABLET (FP) PO SCH (12:40)
[2016-11-06] MEDS: CALCIUM 500MG/VIT-D 200 UNITS COMBO TABLET (FP) PO SCH (13:16)
[2016-11-06] MEDS: ACETAMINOPHEN 325 MG TABLET (FP) PO PRN ×2 (15:26→21:22)
--- NOTE | 2016-11-06 16:56 | PN ---
Progress Note, Physician Chief Complaint: Pt lying in bed,Mild fever present. H/o recurrent UTI and h/o Cystoscopy and hemorrhagic cystitis and failure to OP antibiotics ID note appreciated Pt is on Zosyn renal u/s both Kidney NL - Current Medication List Current Medications: Active Medications Acetaminophen (Tylenol -) 650 mg PO Q4H PRN PRN Reason: FEVER OR PAIN Last Admin: 11/06/16 15:26 Dose: 650 mg Atorvastatin Calcium (Lipitor -) 10 mg PO [facility] Calcium Carbonate/Cholecalciferol (Os-Joe 500+D -) 500 tab PO DAILY [facility] Last Admin: 11/06/16 13:16 Dose: 1 tab Sodium Chloride (Normal Saline -) 1,000 mls @ 100 mls/hr IV ASDIR [facility] Last Admin: 11/06/16 13:19 Dose: 100 mls/hr Piperacillin Sod/Tazobactam (Sod 4.5 gm/ Dextrose) 100 mls @ 200 mls/hr IVPB Q8H-IV [facility] PRN Reason: Protocol Levothyroxine Sodium (Synthroid -) 50 mcg PO DAILY@0700 [facility] Last Admin: 11/06/16 12:39 Dose: 50 mcg Pantoprazole Sodium (Protonix -) 40 mg PO DAILY [facility] Last Admin: 11/06/16 12:40 Dose: 40 mg - Objective Vital Signs: Vital Signs Temperature 100.8 F H 11/06/16 14:08 Pulse Rate 95 H 11/06/16 14:08 Respiratory Rate 20 11/06/16 08:45 Blood Pressure 146/78 11/06/16 14:08 O2 Sat by Pulse Oximetry (%) 97 11/06/16 08:45 Constitutional: Yes: No Distress Eyes: Yes: Conjunctiva Clear HENT: Yes: Atraumatic, Normocephalic Neck: Yes: Supple, Trachea Midline Cardiovascular: Yes: Regular Rate and Rhythm Respiratory: Yes: Regular, CTA Bilaterally Gastrointestinal: Yes: Normal Bowel Sounds, Soft Genitourinary: Yes: Other (Dysuria present) Musculoskeletal: Yes: WNL Extremities: Yes: WNL Edema: No Peripheral Pulses WNL: Yes Neurological: Yes: WNL, Alert ...Motor Strength: WNL Psychiatric: Yes: WNL, Alert Labs: INR, PTT INR 1.36 (0.82-1.09) H 11/06/16 10:30 Laboratory Results - last 24 hr 11/06/16 11/06/16 11/06/16 02:30 02:30 02:30 WBC 16.7 H D RBC 4.25 Hgb 13.3 Hct 39.1 MCV 92.2 MCH 31.2 MCHC 33.9 RDW 12.6 Plt Count 223 MPV 9.3 Neutrophils % 86.4 H D Lymphocytes % 6.0 L D Monocytes % 7.3 Eosinophils % 0.0 D Basophils % 0.3 INR 1.18 H PTT (Actin FS) 29.9 VBG pH POC VBG pCO2 POC VBG pO2 Mixed VBG HCO3 Sodium Potassium Chloride Carbon Dioxide Anion Gap BUN Creatinine Creat Clearance w eGFR Random Glucose Lactic Acid Calcium Total Bilirubin AST ALT Alkaline Phosphatase Creatine Kinase Creatine Kinase Index CK-MB (CK-2) Troponin I Total Protein Albumin Urine Color Yellow Urine Appearance Slcloudy Urine pH 6.0 Ur Specific [place] 1.010 Urine Protein 1+ H Urine Glucose (UA) Negative Urine Ketones Negative Urine Blood 3+ H Urine Nitrite Negative Urine Bilirubin Negative Urine Urobilinogen Negative Ur Leukocyte Esterase 1+ H Urine RBC 26 Urine WBC 8 Ur Epithelial Cells Rare Urine Bacteria Moderate Hyaline Casts 3 Urine Mucus Rare HIV 1&2 Antibody Screen HIV P24 Antigen 11/06/16 11/06/16 11/06/16 02:30 02:30 08:00 WBC RBC Hgb Hct MCV MCH MCHC RDW Plt Count MPV Neutrophils % Lymphocytes % Monocytes % Eosinophils % Basophils % INR PTT (Actin FS) VBG pH 7.29 L POC VBG pCO2 50.2 POC VBG pO2 39.4 Mixed VBG HCO3 23.6 Sodium 139 Potassium 3.3 L Chloride 106 Carbon Dioxide 24 Anion Gap 9 BUN 10 D Creatinine 0.7 Creat Clearance w eGFR > 60 Random Glucose 126 H D Lactic Acid 0.7 Calcium 8.5 Total Bilirubin 0.6 AST 23 D ALT 28 Alkaline Phosphatase 76 Creatine Kinase 235 H Creatine Kinase Index 0.4 CK-MB (CK-2) < 1.000 Troponin I < 0.02 Total Protein 7.2 Albumin 3.4 Urine Color Urine Appearance Urine pH Ur Specific [place] Urine Protein Urine Glucose (UA) Urine Ketones Urine Blood Urine Nitrite Urine Bilirubin Urine Urobilinogen Ur Leukocyte Esterase Urine RBC Urine WBC Ur Epithelial Cells Urine Bacteria Hyaline Casts Urine Mucus HIV 1&2 Antibody Screen HIV P24 Antigen 11/06/16 11/06/16 11/06/16 10:30 10:30 10:30 WBC 16.3 H RBC 3.89 Hgb 11.9 D Hct 35.9 MCV 92.3 MCH 30.7 MCHC 33.3 RDW 12.5 Plt Count 199 MPV 9.1 Neutrophils % 89.0 H Lymphocytes % 5.3 L Monocytes % 5.4 Eosinophils % 0.0 Basophils % 0.3 INR 1.36 H PTT (Actin FS) VBG pH POC VBG pCO2 POC VBG pO2 Mixed VBG HCO3 Sodium 141 Potassium 3.6 Chloride 109 H Carbon Dioxide 22 Anion Gap 10 BUN 8 Creatinine 0.6 Creat Clearance w eGFR Random Glucose 135 H Lactic Acid Calcium 7.8 L Total Bilirubin AST ALT Alkaline Phosphatase Creatine Kinase Creatine Kinase Index CK-MB (CK-2) Troponin I Total Protein Albumin Urine Color Urine Appearance Urine pH Ur Specific [place] Urine Protein Urine Glucose (UA) Urine Ketones Urine Blood Urine Nitrite Urine Bilirubin Urine Urobilinogen Ur Leukocyte Esterase Urine RBC Urine WBC Ur Epithelial Cells Urine Bacteria Hyaline Casts Urine Mucus HIV 1&2 Antibody Screen HIV P24 Antigen 11/06/16 11/06/16 10:30 11:32 WBC RBC Hgb Hct MCV MCH MCHC RDW Plt Count MPV Neutrophils % Lymphocytes % Monocytes % Eosinophils % Basophils % INR PTT (Actin FS) VBG pH POC VBG pCO2 POC VBG pO2 Mixed VBG HCO3 Sodium Potassium Chloride Carbon Dioxide Anion Gap BUN Creatinine Creat Clearance w eGFR Random Glucose Lactic Acid Calcium Total Bilirubin AST ALT Alkaline Phosphatase Creatine Kinase 182 Creatine Kinase Index 0.5 CK-MB (CK-2) < 1.000 Troponin I Total Protein Albumin Urine Color Urine Appearance Urine pH Ur Specific [place] Urine Protein Urine Glucose (UA) Urine Ketones Urine Blood Urine Nitrite Urine Bilirubin Urine Urobilinogen Ur Leukocyte Esterase Urine RBC Urine WBC Ur Epithelial Cells Urine Bacteria Hyaline Casts Urine Mucus HIV 1&2 Antibody Screen Negative HIV P24 Antigen Negative - ....Imaging Chest X-ray: Report Reviewed Ultrasound: Report Reviewed EKG: Report Reviewed Assessment/Plan UTI Fever,leukocytosis Pyelonephritis Hypercholestrolemia, HYPOthyroidism H?O mrsa in the TOE ulcer in 2012 s/p parathyroidectomy PLAN Continue antibiotics Will f/u blood cul and Urine cul and Nasal smear Urology consult pending
[2016-11-06] MEDS ORDERED: PIPERACILLIN/TAZOBACTAM 4.5 GM VIAL IVPB ONE (17:14)
[2016-11-06] MEDS ORDERED: DEXTROSE 5%-WATER 100 ML IVPB ONE (17:14)
[2016-11-06] MEDS: PIPERACILLIN/TAZOB 4.5 GM 4.5 GM in DEXTROSE 5%-WATER 100 ML IVPB SCH (17:17)
--- NOTE | 2016-11-06 19:01 | EKG ---
Test Reason : Blood Pressure : / mmHG Vent. Rate : 108 BPM Atrial Rate : 108 BPM P-R Int : 136 ms QRS Dur : 076 ms QT Int : 310 ms P-R-T Axes : 058 069 043 degrees QTc Int : 415 ms SINUS TACHYCARDIA POSSIBLE LEFT ATRIAL ENLARGEMENT BORDERLINE ECG WHEN COMPARED WITH ECG OF 21-JUL-2015 21:29, NO SIGNIFICANT CHANGE WAS FOUND Confirmed by RICARDO WINTERS MD ([id number]) on 11/06/2016 7:00:56 PM Referred By: Confirmed By:RICARDO WINTERS MD
[2016-11-06] MEDS: ATORVASTATIN CA 10 MG TABLET (FP) PO SCH (21:22)
[2016-11-06] MEDS ORDERED: ATORVASTATIN CA 10 MG TABLET (FP) PO SCH (22:00)
[2016-11-07] MEDS ORDERED: PIPERACILLIN/TAZOBACTAM 4.5 GM VIAL IVPB ONE ×3 (03:52→18:05)
[2016-11-07] MEDS ORDERED: DEXTROSE 5%-WATER 100 ML IVPB ONE ×3 (03:52→18:05)
[2016-11-07] MEDS: PIPERACILLIN/TAZOB 4.5 GM 4.5 GM in DEXTROSE 5%-WATER 100 ML IVPB SCH ×3 (03:54→18:13)
[2016-11-07] MEDS: SODIUM CHLORIDE 1,000 ML IV SCH ×3 (04:49→21:21)
[2016-11-07] MEDS: ACETAMINOPHEN 325 MG TABLET (FP) PO PRN ×2 (05:49→12:20)
[2016-11-07] MEDS: LEVOTHYROXINE NA 50 MCG TABLET (FP) PO SCH (06:11)
[2016-11-07 08:26] LABS: BASOPHIL 0.3 % (0-2.0); MEAN CELL VOLUME 91.2 fl (80-96); NEUTROPHILS 74.7 % (42.8-82.8); PLATELET COUNT 205 K/MM3 (134-434); RDW 12.6 % (11.6-15.6); WHITE BLOOD COUNT 12.9 K/mm3 (4.0-10.0)
[2016-11-07 09:02] LABS: ALBUMIN 2.6 g/dl (3.4-5.0); ALK PHOS 64 U/L (45-117); ANION GAP 6 (8-16); BILIRUBIN,TOTAL 0.5 mg/dL (0.2-1.0); CALCIUM 7.8 mg/dL (8.5-10.1); CO2 26 mmol/L (21-32); CREATININE 0.5 mg/dL (0.55-1.02); GLUCOSE,RANDOM 94 mg/dL (74-106); SGOT/AST 26 U/L (15-37); SGPT/ALT 28 U/L (12-78); TOT PROT 5.8 g/dl (6.4-8.2)
--- NOTE | 2016-11-07 09:33 | PN ---
Progress Note, Physician Chief Complaint: Pt lying in bed,Mild fever present. H/o recurrent UTI and h/o Cystoscopy and hemorrhagic cystitis and failure to OP antibiotics ID note appreciated Pt is on Zosyn renal u/s both Kidney NL blood cul negative urine cul pending - Current Medication List Current Medications: Active Medications Acetaminophen (Tylenol -) 650 mg PO Q4H PRN PRN Reason: FEVER OR PAIN Last Admin: 11/07/16 05:49 Dose: 650 mg Atorvastatin Calcium (Lipitor -) 10 mg PO HS [facility] Last Admin: 11/06/16 21:22 Dose: 10 mg Calcium Carbonate/Cholecalciferol (Os-Joe 500+D -) 500 tab PO DAILY [facility] Last Admin: 11/06/16 13:16 Dose: 1 tab Sodium Chloride (Normal Saline -) 1,000 mls @ 100 mls/hr IV ASDIR [facility] Last Admin: 11/07/16 04:49 Dose: 100 mls/hr Piperacillin Sod/Tazobactam (Sod 4.5 gm/ Dextrose) 100 mls @ 200 mls/hr IVPB Q8H-IV [facility] PRN Reason: Protocol Last Admin: 11/07/16 03:54 Dose: 200 mls/hr Levothyroxine Sodium (Synthroid -) 50 mcg PO DAILY@0700 [facility] Last Admin: 11/07/16 06:11 Dose: 50 mcg Pantoprazole Sodium (Protonix -) 40 mg PO DAILY [facility] Last Admin: 11/06/16 12:40 Dose: 40 mg Potassium Chloride (K-Dur -) 40 meq PO ONCE ONE Stop: 11/07/16 09:29 - Objective Vital Signs: Vital Signs Temperature 99.9 F H 11/07/16 06:00 Pulse Rate 93 H 11/07/16 06:00 Respiratory Rate 18 11/07/16 06:00 Blood Pressure 127/57 11/07/16 06:00 O2 Sat by Pulse Oximetry (%) 98 11/07/16 03:00 Constitutional: Yes: No Distress Eyes: Yes: Conjunctiva Clear HENT: Yes: Atraumatic Neck: Yes: Supple Cardiovascular: Yes: Regular Rate and Rhythm Respiratory: Yes: Regular, CTA Bilaterally Gastrointestinal: Yes: WNL Musculoskeletal: Yes: WNL Extremities: Yes: WNL Edema: No Peripheral Pulses WNL: Yes Neurological: Yes: Alert, Oriented ...Motor Strength: WNL Psychiatric: Yes: Alert, Oriented Labs: CBC, BMP 11/07/16 07:20 11/07/16 07:20 INR, PTT INR 1.36 (0.82-1.09) H 11/06/16 10:30 Assessment/Plan UTI ,leukocytosis improved Pyelonephritis Hypercholestrolemia, HYPOthyroidism H?O mrsa in the TOE ulcer in 2012 s/p parathyroidectomy blood cul negative PLAN Continue antibiotics Will f/u and Urine cul and Nasal smear Urology consult pending
[2016-11-07] MEDS ORDERED: POTASSIUM CHLORIDE TABS 20 MEQ TABLET.ER (FP) PO ONE (09:45)
[2016-11-07] MEDS ORDERED: CALCIUM 500MG/VIT-D 200 UNITS COMBO TABLET (FP) PO SCH (10:00)
[2016-11-07] MEDS ORDERED: LEVOFLOXACIN 750 MG IVPB 150 ML IVPB SCH (10:00)
[2016-11-07] MEDS ORDERED: PT OWN MED DRAWER 7, Y5N ONE (10:47)
[2016-11-07] MEDS: PANTOPRAZOLE 40 MG TABLET (FP) PO SCH (10:56)
[2016-11-07] MEDS: CALCIUM 500MG/VIT-D 200 UNITS COMBO TABLET (FP) PO SCH ×2 (12:23→15:36)
--- NOTE | 2016-11-07 13:26 | PN ---
Progress Note (short form) - Note Progress Note: feels better eating meals Vital Signs Period Temp Pulse Resp BP Sys/Cornelius Pulse Ox Last 24 Hr 97.6 F-100.8 F 78-95 18-20 125-146/57-78 96-98 cor-rrr lungs clear abd soft,nt ext no edema no cvat CBC, BMP 11/07/16 07:20 11/07/16 07:20 Microbiology 11/06/16 02:30 Urine - Urine Clean Catch Urine Culture - Preliminary Lactose Fermenting Neg Bacilli 11/06/16 10:00 Nares - Mrsa Screen - Right MRSA Screen - Final Mr S Aureus 11/06/16 10:00 Nares - Mrsa Screen - Left MRSA Screen - Final NO MRSA ISOLATED 11/06/16 02:36 Blood - Peripheral Venous Blood Culture - Preliminary NO GROWTH OBTAINED AFTER 24 HOURS, INCUBATION TO CONTINUE FOR 4 DAYS. 11/06/16 02:30 Blood - Peripheral Venous Blood Culture - Preliminary NO GROWTH OBTAINED AFTER 24 HOURS, INCUBATION TO CONTINUE FOR 4 DAYS. a/p UTI continue zosyn f/u cultures continue MRSA contact isolation
[2016-11-07] MEDS: ATORVASTATIN CA 10 MG TABLET (FP) PO SCH (21:20)
[2016-11-08] MEDS ORDERED: PIPERACILLIN/TAZOBACTAM 4.5 GM VIAL IVPB ONE ×2 (01:07→09:58)
[2016-11-08] MEDS ORDERED: DEXTROSE 5%-WATER 100 ML IVPB ONE ×2 (01:07→09:59)
[2016-11-08] MEDS: PIPERACILLIN/TAZOB 4.5 GM 4.5 GM in DEXTROSE 5%-WATER 100 ML IVPB SCH ×2 (01:09→10:12)
[2016-11-08] MEDS: LEVOTHYROXINE NA 50 MCG TABLET (FP) PO SCH (06:36)
--- NOTE | 2016-11-08 09:39 | PN ---
Progress Note, Physician Chief Complaint: Pt lying in bed,. H/o recurrent UTI and h/o Cystoscopy and hemorrhagic cystitis and failure to OP antibiotics ID note appreciated Pt is on Zosyn renal u/s both Kidney NL blood cul negative urine cul lactose fermenting gm negative bacilli LT nares MRSA negative negative - Current Medication List Current Medications: Active Medications Acetaminophen (Tylenol -) 650 mg PO Q4H PRN PRN Reason: FEVER OR PAIN Last Admin: 11/07/16 12:20 Dose: 650 mg Atorvastatin Calcium (Lipitor -) 10 mg PO HS [facility] Last Admin: 11/07/16 21:20 Dose: 10 mg Calcium Carbonate/Cholecalciferol (Os-Joe 500+D -) 500 tab PO DAILY [facility] Last Admin: 11/07/16 15:36 Dose: 500 tab Sodium Chloride (Normal Saline -) 1,000 mls @ 100 mls/hr IV ASDIR [facility] Last Admin: 11/07/16 21:21 Dose: 100 mls/hr Piperacillin Sod/Tazobactam (Sod 4.5 gm/ Dextrose) 100 mls @ 200 mls/hr IVPB Q8H-IV [facility] PRN Reason: Protocol Last Admin: 11/08/16 01:09 Dose: 200 mls/hr Levothyroxine Sodium (Synthroid -) 50 mcg PO DAILY@0700 [facility] Last Admin: 11/08/16 06:36 Dose: 50 mcg Pantoprazole Sodium (Protonix -) 40 mg PO DAILY [facility] Last Admin: 11/07/16 10:56 Dose: 40 mg - Objective Vital Signs: Vital Signs Temperature 98.6 F 11/08/16 08:47 Pulse Rate 87 11/08/16 08:47 Respiratory Rate 20 11/08/16 08:47 Blood Pressure 125/74 11/08/16 08:47 O2 Sat by Pulse Oximetry (%) 97 11/07/16 09:00 Constitutional: Yes: No Distress Eyes: Yes: Conjunctiva Clear HENT: Yes: Atraumatic, Normocephalic Neck: Yes: Supple, Trachea Midline Cardiovascular: Yes: Regular Rate and Rhythm Respiratory: Yes: Regular, CTA Bilaterally Gastrointestinal: Yes: Normal Bowel Sounds, Soft Musculoskeletal: Yes: WNL Extremities: Yes: WNL Edema: No Peripheral Pulses WNL: Yes Neurological: Yes: WNL, Alert, Oriented ...Motor Strength: WNL Psychiatric: Yes: WNL, Alert Labs: CBC, BMP 11/07/16 07:20 11/07/16 07:20 INR, PTT INR 1.36 (0.82-1.09) H 11/06/16 10:30 Assessment/Plan UTI ,leukocytosis improved Pyelonephritis Hypercholestrolemia, HYPOthyroidism H?O mrsa in the TOE ulcer in 2012,NMRSA positive in RT nares s/p parathyroidectomy blood cul negative PLAN Continue antibiotics Will f/u and Urine cul Urology consult pending Will monitor K
[2016-11-08] MEDS: PANTOPRAZOLE 40 MG TABLET (FP) PO SCH (10:12)
[2016-11-08] MEDS: SODIUM CHLORIDE 1,000 ML IV SCH ×2 (10:19→19:01)
[2016-11-08 10:28] LABS: BASOPHIL 0.8 % (0-2.0); EOSINOPHIL 0.2 % (0-4.5); MCH 30.7 pg (25.7-33.7); MCHC 33.6 g/dl (32.0-36.0); MEAN CELL VOLUME 91.2 fl (80-96); MEAN PLT VOLUME 8.7 fl (7.5-11.1); NEUTROPHILS 68.1 % (42.8-82.8); PLATELET COUNT 268 K/MM3 (134-434); RDW 12.5 % (11.6-15.6); WHITE BLOOD COUNT 8.9 K/mm3 (4.0-10.0)
[2016-11-08 10:53] LABS: ALBUMIN 2.8 g/dl (3.4-5.0); ANION GAP 7 (8-16); BILIRUBIN,TOTAL 0.3 mg/dL (0.2-1.0); CALCIUM 8.1 mg/dL (8.5-10.1); CO2 28 mmol/L (21-32); CREATININE 0.6 mg/dL (0.55-1.02); GLUCOSE,RANDOM 119 mg/dL (74-106); SGOT/AST 51 U/L (15-37); SGPT/ALT 58 U/L (12-78); TOT PROT 6.3 g/dl (6.4-8.2)
[2016-11-08 10:54] LABS: ALK PHOS 76 U/L (45-117)
[2016-11-08] MEDS: CALCIUM 500MG/VIT-D 200 UNITS COMBO TABLET (FP) PO SCH (11:22)
--- NOTE | 2016-11-08 12:54 | PN ---
Progress Note (short form) - Note Progress Note: feels better minimal low back pain Vital Signs Period Temp Pulse Resp BP Sys/Cornelius Pulse Ox Last 24 Hr 98.1 F-99.2 F 76-87 20-20 116-125/66-80 97 cor-rrr lungs clear abd soft,nt ext no edema CBC, BMP 11/08/16 10:15 11/08/16 10:15 Microbiology 11/06/16 02:30 Urine - Urine Clean Catch Urine Culture - Final Escherichia Coli Esbl Gut Puller 11/06/16 02:36 Blood - Peripheral Venous Blood Culture - Preliminary NO GROWTH OBTAINED AFTER 48 HOURS, INCUBATION TO CONTINUE FOR 3 DAYS. 11/06/16 02:30 Blood - Peripheral Venous Blood Culture - Preliminary NO GROWTH OBTAINED AFTER 48 HOURS, INCUBATION TO CONTINUE FOR 3 DAYS. 11/06/16 10:00 Nares - Mrsa Screen - Right MRSA Screen - Final Mr S Aureus 11/06/16 10:00 Nares - Mrsa Screen - Left MRSA Screen - Final NO MRSA ISOLATED a/p UTI/pyelonephritis- ecoli esbl switch to ertapenem, contact isolation continue MRSA contact isolation antibiotic day #3
[2016-11-08] MEDS: ERTAPENEM SODIUM 1 GM in SODIUM CHLORIDE 50 ML IVPB SCH (14:54)
[2016-11-08] MEDS: ATORVASTATIN CA 10 MG TABLET (FP) PO SCH (21:53)
[2016-11-09] MEDS: SODIUM CHLORIDE 1,000 ML IV SCH ×2 (06:01→15:53)
[2016-11-09] MEDS: LEVOTHYROXINE NA 50 MCG TABLET (FP) PO SCH (06:02)
--- NOTE | 2016-11-09 09:33 | PN ---
Progress Note, Physician Chief Complaint: Pt lying in bed,. H/o recurrent UTI and h/o Cystoscopy and hemorrhagic cystitis and failure to OP antibiotics ID note appreciated Pt is on ertapenam renal u/s both Kidney NL blood cul negative urine cul Ecoli ESBL LT nares MRSA negative Hypokalemia - Current Medication List Current Medications: Active Medications Acetaminophen (Tylenol -) 650 mg PO Q4H PRN PRN Reason: FEVER OR PAIN Last Admin: 11/07/16 12:20 Dose: 650 mg Atorvastatin Calcium (Lipitor -) 10 mg PO HS [facility] Last Admin: 11/08/16 21:53 Dose: 10 mg Calcium Carbonate/Cholecalciferol (Os-Joe 500+D -) 500 tab PO DAILY [facility] Last Admin: 11/08/16 11:22 Dose: 500 tab Sodium Chloride (Normal Saline -) 1,000 mls @ 100 mls/hr IV ASDIR [facility] Last Admin: 11/09/16 06:01 Dose: 100 mls/hr Ertapenem 1 gm/ Sodium (Chloride) 50 mls @ 100 mls/hr IVPB DAILY [facility] PRN Reason: Protocol Last Admin: 11/08/16 14:54 Dose: 100 mls/hr Levothyroxine Sodium (Synthroid -) 50 mcg PO DAILY@0700 [facility] Last Admin: 11/09/16 06:02 Dose: 50 mcg Pantoprazole Sodium (Protonix -) 40 mg PO DAILY [facility] Last Admin: 11/08/16 10:12 Dose: 40 mg - Objective Vital Signs: Vital Signs Temperature 98.5 F 11/09/16 02:00 Pulse Rate 68 11/09/16 02:00 Respiratory Rate 20 11/08/16 22:00 Blood Pressure 132/71 11/08/16 22:00 O2 Sat by Pulse Oximetry (%) 96 11/08/16 21:00 Constitutional: Yes: No Distress Eyes: Yes: Conjunctiva Clear HENT: Yes: Atraumatic, Normocephalic Neck: Yes: Supple, Trachea Midline Cardiovascular: Yes: Regular Rate and Rhythm Respiratory: Yes: Regular, CTA Bilaterally Gastrointestinal: Yes: Normal Bowel Sounds, Soft Musculoskeletal: Yes: WNL Extremities: Yes: WNL Edema: No Peripheral Pulses WNL: Yes Neurological: Yes: WNL, Alert ...Motor Strength: WNL Psychiatric: Yes: WNL, Alert Labs: CBC, BMP 11/08/16 10:15 11/08/16 10:15 INR, PTT INR 1.36 (0.82-1.09) H 11/06/16 10:30 Laboratory Results - last 24 hr 11/08/16 11/08/16 10:15 10:15 WBC 8.9 D RBC 3.94 Hgb 12.1 Hct 35.9 MCV 91.2 MCH 30.7 MCHC 33.6 RDW 12.5 Plt Count 268 D MPV 8.7 Neutrophils % 68.1 Lymphocytes % 20.8 D Monocytes % 10.1 Eosinophils % 0.2 D Basophils % 0.8 Sodium 142 Potassium 3.1 L Chloride 107 Carbon Dioxide 28 Anion Gap 7 L BUN 6 L D Creatinine 0.6 Creat Clearance w eGFR > 60 Random Glucose 119 H D Calcium 8.1 L Total Bilirubin 0.3 D AST 51 H D ALT 58 D Alkaline Phosphatase 76 Total Protein 6.3 L Albumin 2.8 L Assessment/Plan UTI Urine cul Ecoli ESBL ,leukocytosis improved Pyelonephritis Hypercholestrolemia, HYPOthyroidism H?O mrsa in the TOE ulcer in 2012,NMRSA positive in RT nares s/p parathyroidectomy blood cul negative PLAN Continue antibiotics Will f/u and Urine cul K suppliment Will monitor K
[2016-11-09] MEDS ORDERED: POTASSIUM CHLORIDE TABS 20 MEQ TABLET.ER (FP) PO ONE (09:45)
[2016-11-09] MEDS ORDERED: PT OWN MED DRAWER 7, Y5N ONE (10:13)
[2016-11-09] MEDS: ERTAPENEM SODIUM 1 GM in SODIUM CHLORIDE 50 ML IVPB SCH (10:17)
[2016-11-09] MEDS: PANTOPRAZOLE 40 MG TABLET (FP) PO SCH (10:18)
--- NOTE | 2016-11-09 11:54 | PN ---
Progress Note, Physician Chief Complaint: ID Antibiotic just changed based on ESBL Ertepenem - Current Medication List Current Medications: Active Medications Acetaminophen (Tylenol -) 650 mg PO Q4H PRN PRN Reason: FEVER OR PAIN Last Admin: 11/07/16 12:20 Dose: 650 mg Atorvastatin Calcium (Lipitor -) 10 mg PO HS [facility] Last Admin: 11/08/16 21:53 Dose: 10 mg Calcium Carbonate/Cholecalciferol (Os-Joe 500+D -) 500 tab PO DAILY [facility] Last Admin: 11/08/16 11:22 Dose: 500 tab Sodium Chloride (Normal Saline -) 1,000 mls @ 100 mls/hr IV ASDIR [facility] Last Admin: 11/09/16 06:01 Dose: 100 mls/hr Ertapenem 1 gm/ Sodium (Chloride) 50 mls @ 100 mls/hr IVPB DAILY [facility] PRN Reason: Protocol Last Admin: 11/09/16 10:17 Dose: 100 mls/hr Levothyroxine Sodium (Synthroid -) 50 mcg PO DAILY@0700 [facility] Last Admin: 11/09/16 06:02 Dose: 50 mcg Pantoprazole Sodium (Protonix -) 40 mg PO DAILY [facility] Last Admin: 11/09/16 10:18 Dose: 40 mg - Objective Vital Signs: Vital Signs Temperature 98.5 F 11/09/16 02:00 Pulse Rate 68 11/09/16 02:00 Respiratory Rate 20 11/08/16 22:00 Blood Pressure 132/71 11/08/16 22:00 O2 Sat by Pulse Oximetry (%) 96 11/08/16 21:00 Labs: CBC, BMP 11/08/16 10:15 11/08/16 10:15 INR, PTT INR 1.36 (0.82-1.09) H 11/06/16 10:30 Problem List - Problems (1) UTI (urinary tract infection) Code(s): N39.0 - URINARY TRACT INFECTION, SITE NOT SPECIFIED (2) Pyelonephritis Code(s): N12 - TUBULO-INTERSTITIAL NEPHRITIS, NOT SPCF ACUTE OR CHRONIC Assessment/Plan Microbiology 11/06/16 10:00 Nares - Mrsa Screen - Right MRSA Screen - Final Mr S Aureus 11/06/16 02:30 Urine - Urine Clean Catch Urine Culture - Final Escherichia Coli Esbl Receiver 11/06/16 02:36 Blood - Peripheral Venous Blood Culture - Preliminary NO GROWTH OBTAINED AFTER 72 HOURS, INCUBATION TO CONTINUE FOR 2 DAYS. 11/06/16 02:30 Blood - Peripheral Venous Blood Culture - Preliminary NO GROWTH OBTAINED AFTER 72 HOURS, INCUBATION TO CONTINUE FOR 2 DAYS. Laboratory Tests 11/08/16 11/08/16 10:15 10:15 WBC 8.9 D Plt Count 268 D Creatinine 0.6 Assessment UTI ESBL Plan Look into PICC line for discharge on say 6 more days of Etepenem daily Kathi HARTLEY
[2016-11-09 18:39] LABS: ALBUMIN 3.1 g/dl (3.4-5.0); ALK PHOS 87 U/L (45-117); ANION GAP 10 (8-16); BILIRUBIN,TOTAL 0.2 mg/dL (0.2-1.0); CALCIUM 8.6 mg/dL (8.5-10.1); CO2 26 mmol/L (21-32); CREATININE 0.6 mg/dL (0.55-1.02); GLUCOSE,RANDOM 114 mg/dL (74-106); SGOT/AST 45 U/L (15-37); SGPT/ALT 67 U/L (12-78); TOT PROT 6.3 g/dl (6.4-8.2)
[2016-11-09] MEDS: ATORVASTATIN CA 10 MG TABLET (FP) PO SCH (21:19)
[2016-11-10] MEDS: SODIUM CHLORIDE 1,000 ML IV SCH (03:00)
[2016-11-10] MEDS: LEVOTHYROXINE NA 50 MCG TABLET (FP) PO SCH (06:31)
[2016-11-10 07:45] LABS: BASOPHIL 0.8 % (0-2.0); EOSINOPHIL 0.8 % (0-4.5); MCH 31.1 pg (25.7-33.7); MCHC 34.6 g/dl (32.0-36.0); MEAN PLT VOLUME 8.6 fl (7.5-11.1); NEUTROPHILS 53.4 % (42.8-82.8); PLATELET COUNT 301 K/MM3 (134-434); RDW 12.8 % (11.6-15.6); WHITE BLOOD COUNT 7.3 K/mm3 (4.0-10.0)
[2016-11-10 07:57] LABS: ALBUMIN 2.8 g/dl (3.4-5.0); ANION GAP 9 (8-16); CALCIUM 8.2 mg/dL (8.5-10.1); CO2 26 mmol/L (21-32); GLUCOSE,RANDOM 87 mg/dL (74-106)
[2016-11-10 08:00] LABS: ALK PHOS 74 U/L (45-117); BILIRUBIN,TOTAL 0.4 mg/dL (0.2-1.0); CREATININE 0.5 mg/dL (0.55-1.02); SGOT/AST 33 U/L (15-37); SGPT/ALT 57 U/L (12-78); TOT PROT 6.1 g/dl (6.4-8.2)
--- NOTE | 2016-11-10 09:34 | PN ---
Progress Note, Physician Chief Complaint: Pt lying in bed,. H/o recurrent UTI and h/o Cystoscopy and hemorrhagic cystitis and failure to OP antibiotics ID note appreciated Pt is on ertapenam renal u/s both Kidney NL blood cul negative urine cul Ecoli ESBL LT nares MRSA negative Hypokalemia improved for PICC line today D/C home after picc line Continue Ertapenam for 6 more days - Current Medication List Current Medications: Active Medications Acetaminophen (Tylenol -) 650 mg PO Q4H PRN PRN Reason: FEVER OR PAIN Last Admin: 11/07/16 12:20 Dose: 650 mg Atorvastatin Calcium (Lipitor -) 10 mg PO HS [facility] Last Admin: 11/09/16 21:19 Dose: 10 mg Calcium Carbonate/Cholecalciferol (Os-Joe 500+D -) 500 tab PO DAILY [facility] Last Admin: 11/08/16 11:22 Dose: 500 tab Sodium Chloride (Normal Saline -) 1,000 mls @ 100 mls/hr IV ASDIR [facility] Last Admin: 11/10/16 03:00 Dose: 100 mls/hr Ertapenem 1 gm/ Sodium (Chloride) 50 mls @ 100 mls/hr IVPB DAILY [facility] PRN Reason: Protocol Last Admin: 11/09/16 10:17 Dose: 100 mls/hr Levothyroxine Sodium (Synthroid -) 50 mcg PO DAILY@0700 [facility] Last Admin: 11/10/16 06:31 Dose: 50 mcg Pantoprazole Sodium (Protonix -) 40 mg PO DAILY [facility] Last Admin: 11/09/16 10:18 Dose: 40 mg - Objective Vital Signs: Vital Signs Temperature 98.5 F 11/10/16 06:00 Pulse Rate 62 11/10/16 06:00 Respiratory Rate 20 11/10/16 06:00 Blood Pressure 118/75 11/10/16 06:00 O2 Sat by Pulse Oximetry (%) 96 11/08/16 21:00 Constitutional: Yes: No Distress Eyes: Yes: Conjunctiva Clear HENT: Yes: Atraumatic Neck: Yes: Supple, Trachea Midline Cardiovascular: Yes: Regular Rate and Rhythm Respiratory: Yes: Regular, CTA Bilaterally Gastrointestinal: Yes: Normal Bowel Sounds, Soft Breast(s): Yes: WNL Musculoskeletal: Yes: WNL Extremities: Yes: WNL Edema: No Peripheral Pulses WNL: Yes Neurological: Yes: WNL, Alert ...Motor Strength: WNL Psychiatric: Yes: WNL, Alert, Oriented Labs: CBC, BMP 11/10/16 06:30 11/10/16 06:30 INR, PTT INR 1.36 (0.82-1.09) H 11/06/16 10:30 Assessment/Plan UTI Urine cul Ecoli ESBL ,leukocytosis improved Pyelonephritis Hypercholestrolemia, HYPOthyroidism H?O mrsa in the TOE ulcer in 2012,NMRSA positive in RT nares s/p parathyroidectomy blood cul negative PLAN Continue antibiotics ertapenam for 5 more days after today"s dose D/c home after PICC line placement Continue home meds F/u with PMD in 1 wk
[2016-11-10] MEDS ORDERED: PT OWN MED DRAWER 7, Y5N ONE (11:13)
[2016-11-10] MEDS: ERTAPENEM SODIUM 1 GM in SODIUM CHLORIDE 50 ML IVPB SCH (11:22)
[2016-11-10] MEDS: PANTOPRAZOLE 40 MG TABLET (FP) PO SCH (11:22)
[2016-11-10] MEDS: CALCIUM 500MG/VIT-D 200 UNITS COMBO TABLET (FP) PO SCH (11:23)
[2016-11-10 12:04] VITALS: BP 120/66; PULSE 64; TEMP 98.2
--- NOTE | 2016-11-10 12:58 | PN ---
Progress Note (short form) - Note Progress Note: ID PICC line in Ertepenem Selected Entries 11/10/16 10:00 Temperature 98.2 F Pulse Rate 64 Respiratory 20 Rate Blood Pressure 120/66 Microbiology 11/06/16 10:00 Nares - Mrsa Screen - Right MRSA Screen - Final S Aureus 11/06/16 02:30 Urine - Urine Clean Catch Urine Culture - Final Escherichia Coli Esbl Midwife Laboratory Tests 11/10/16 11/10/16 06:30 06:30 Hgb 11.9 Plt Count 301 BUN 8 D Creatinine 0.5 L Assessment PICC line for completion of antibiotic with ut pt followup Dr Foley Problem List - Problems (1) UTI (urinary tract infection) Code(s): N39.0 - URINARY TRACT INFECTION, SITE NOT SPECIFIED (2) Pyelonephritis Code(s): N12 - TUBULO-INTERSTITIAL NEPHRITIS, NOT SPCF ACUTE OR CHRONIC
--- NOTE | 2016-11-10 15:57 | DS ---
Physical Examination Vital Signs: Vital Signs Temperature 98.2 F 11/10/16 10:00 Pulse Rate 64 11/10/16 10:00 Respiratory Rate 20 11/10/16 10:00 Blood Pressure 120/66 11/10/16 10:00 O2 Sat by Pulse Oximetry (%) 96 11/08/16 21:00 Labs: CBC, BMP 11/10/16 06:30 11/10/16 06:30 Discharge Summary Reason For Visit: FAILED OUTPT TREATMENT FOR UTI Current Active Problems Cystitis (Acute) Fever (Acute) Pyelonephritis (Acute) UTI (urinary tract infection) (Acute) Urinary frequency (Acute) Hospital Course: Pt with h/o recurrent UTI,S/p cystoscopy from outside,hypothyroidism, hypercholestrolemia,s/p parathyroidectomy admitted with UTI and Pylelonehritis At the time of admission WBC was 16.Blood cul negative.Urine cul shows E COLI ESBL,RT nares positive for MRSa.Pt was in [place].TREATED with zosyn.Bladder U/ s negative.PT was followed by ID.Pt was stable in the floor.Pt was started on Etrapenam as per ID.PICC LINE placed and rec to continue Ertapenam for Total 7 days.PT was afebrile and free of urinary symptom.so d/c home in a stable condition and rec to f/u with urology as OP Condition: Stable - Instructions Disposition: HOME - Home Medications Comprehensive Discharge Medication List: Ambulatory Orders Levothyroxine [Synthroid -] 50 mcg PO DAILY 07/21/15 Pantoprazole Sodium [Protonix] 40 mg PO DAILY 07/21/15 Simvastatin 20 mg PO HS 07/21/15 Calcium (Oyster Shell) [Os-Joe 500MG -] 1 tab PO DAILY 07/11/16 Mv-Mn/Iron/FA/Herbal Cmplx#190 [Vitamin D3 Complete Caplet] 1 each PO DAILY 04/28 Ertapenem Sodium [Invanz -] 1 gm IVPB DAILY 5 Days 11/11/16
== END 2016-11-10 14:10 | disposition home or self-care (01) | DRG 463 ==
LOC: JER 23:51 → JERBED 11-06 05:39 → J6S 11-06 08:34 → OBSVTOIN 11-06 11:32 → J6S 11-08 15:12
PROVIDERS: ADMIT Family Medicine; ATTEND Family Medicine
DX: N12 Tubulo-interstitial nephritis, not specified as acute or chronic (principal); B96.29 Other Escherichia coli [E. coli] as the cause of diseases classified elsewhere; E87.6 Hypokalemia; K57.30 Diverticulosis of large intestine without perforation or abscess without bleeding; Z86.73 Personal history of transient ischemic attack (TIA), and cerebral infarction without residual deficits; E78.00 Pure hypercholesterolemia, unspecified; K21.9 Gastro-esophageal reflux disease without esophagitis; E89.0 Postprocedural hypothyroidism; Z75.1 Person awaiting admission to adequate facility elsewhere; Z51.89 Encounter for other specified aftercare
CPT/HCPCS: 36415; 36569; 71010-TC; 76775-TC; 77001-TC; 80048; 80053; 81003; 81015; 82553; 82803; 83605; 84484; 85025; 85610; 85730; 86803; 87040; 87081; 87086; 87186; 87389; 93005; 93010; 99282-25; C1751; G0378

== ENCOUNTER 2017-04-09 14:43 | Emergency (ER) | payer OTHER ==
[2017-04-09 14:49] VITALS: BP 133/80; PULSE 93; TEMP 98; BMI 21.1
--- NOTE | 2017-04-09 14:53 | PDOC ---
Rapid Medical Evaluation Chief Complaint: Urinary Problem Time Seen by Provider: 04/09/17 14:47 Medical Evaluation: Allergies Allergy/AdvReac Type Severity Reaction Status Date / Time lidocaine Allergy Rash Verified 04/09/17 14:47 propofol Allergy Rash Verified 04/09/17 14:47 Vital Signs Temp Pulse Resp BP Pulse Ox 98 F 93 H 18 133/80 98 04/09/17 14:47 04/09/17 14:47 04/09/17 14:47 04/09/17 14:47 04/09/17 14:47 04/09/17 14:49 The patient presents with a chief complaint of: [Pain on urination, back pain. Was treated for UTI completed treatment 2 weeks ago with cefuorxime. ] I have performed a brief in-person evaluation of this patient. Pertinent physical exam findings: vss, [Lungs clear on assessment, RRR, Mild mid lower abdominal discomfort. No CVA tenderness. ] I have ordered the following: [UA, Urine culture] The patient will proceed to the ED for further evaluation. Discharge Disposition - Diagnosis Urinary frequency - Referrals - Patient Instructions - Post Discharge Activity
[2017-04-09 15:06] LABS: URINE APPEARANCE CLEAR; URINE BILIRUBIN NEGATIVE (NEGATIVE); URINE BLOOD 2+ (NEGATIVE); URINE COLOR COLORLESS; URINE GLUCOSE (UA) NEGATIVE (NEGATIVE); URINE KETONE NEGATIVE (NEGATIVE); URINE LEUK ESTERASE NEGATIVE (NEGATIVE); URINE NITRITE NEGATIVE (NEGATIVE); URINE PROTEIN NEGATIVE (NEGATIVE); URINE UROBILINOGEN NEGATIVE mg/dL (0.2-1.0)
[2017-04-09 15:12] LABS: EPI CELLS RARE /HPF (FEW); URINE BACTERIA RARE /hpf (NONE SEEN); YEAST RARE
--- NOTE | 2017-04-09 15:32 | PDOC ---
History of Present Illness - General Chief Complaint: Urinary Problem Stated Complaint: DIZZINESS, URINARY PROBLEM Time Seen by Provider: 04/09/17 14:47 History Source: Patient, Family - History of Present Illness Timing/Duration: reports: constant Past History - Past Medical History Allergies/Adverse Reactions: Allergies Allergy/AdvReac Type Severity Reaction Status Date / Time lidocaine Allergy Rash Verified 04/09/17 14:47 propofol Allergy Rash Verified 04/09/17 14:47 Home Medications: Ambulatory Orders Levothyroxine [Synthroid -] 50 mcg PO DAILY 07/21/15 Pantoprazole Sodium [Protonix] 40 mg PO DAILY 07/21/15 Simvastatin 20 mg PO HS 07/21/15 Calcium (Oyster Shell) [Os-Joe 500MG -] 1 tab PO DAILY 07/11/16 Mv-Mn/Iron/Folic Acid/Herb 190 [Vitamin D3 Complete Caplet] 1 each PO DAILY 04/28 Ertapenem Sodium [Invanz -] 1 gm IVPB DAILY 5 Days vial 11/11/16 Nitrofurantoin Monohyd/M-Cryst [Macrobid -] 100 mg PO BID #13 capsule 04/09/17 Anemia: No Asthma: No Cancer: No Cardiac Disorders: No CVA: Yes (TIA) COPD: No CHF: No Dementia: No Diabetes: No GI Disorders: Yes (GERD, diverticulosis) Disorders: Yes (HX UTI) HTN: No Hypercholesterolemia: Yes Liver Disease: No Seizures: No Thyroid Disease: Yes - Surgical History Abdominal Surgery: No Appendectomy: Yes (EGD) Cardiac Surgery: No Cholecystectomy: No Lung Surgery: No Neurologic Surgery: No Orthopedic Surgery: No - Suicide/Smoking/Psychosocial Hx Smoking Status: No Smoking History: Never smoked Have you smoked in the past 12 months: No Number of Cigarettes Smoked Daily: 0 Hx Alcohol Use: No Drug/Substance Use Hx: No Substance Use Type: None Hx Substance Use Treatment: No Review of Systems - Review of Systems Constitutional: No: Chills, Fever ABD/GI: No: Nausea, Vomiting : Yes: Burning, Dysuria. No: Flank Pain *Physical Exam - Vital Signs Last Vital Signs Temp Pulse Resp BP Pulse Ox 98 F 93 H 18 133/80 98 04/09/17 14:47 04/09/17 14:47 04/09/17 14:47 04/09/17 14:47 04/09/17 14:47 - Physical Exam General Appearance: Yes: Appropriately Dressed. No: Apparent Distress HEENT: positive: Normal Voice Neck: positive: Supple Respiratory/Chest: negative: Respiratory Distress Gastrointestinal/Abdominal: positive: Soft. negative: Tender Musculoskeletal: negative: CVA Tenderness Integumentary: positive: Dry, Warm Neurologic: positive: Fully Oriented, Alert, Normal Mood/Affect ED Treatment Course - LABORATORY CBC & Chemistry Diagram: 04/09/17 15:30 04/09/17 15:30 - ADDITIONAL ORDERS Additional order review: Laboratory Results 04/09/17 14:50 Urine Color Colorless Urine Appearance Clear Urine pH 6.0 Ur Specific [place] 1.002 Urine Protein Negative Urine Glucose (UA) Negative Urine Ketones Negative Urine Blood 2+ H Urine Nitrite Negative Urine Bilirubin Negative Urine Urobilinogen Negative Ur Leukocyte Esterase Negative Urine WBC (Auto) 1 Urine RBC (Auto) None Ur Epithelial Cells Rare Urine Bacteria Rare Urine Yeast Rare Medical Decision Making - Medical Decision Making 04/09/17 15:28 56-year-old female, HLD, hypothyroid s/p parathyroidectomy, status post admission 10/26 for UTI/pyelo, w/ ESBL Escherichia coli on urine culture that resolved with ertapenem here with dysuria with frequency since yesterday. No flank pain, nausea, vomiting, malaise, fever or chills. Patient states she completed cefuroxime 2 weeks ago after presenting to her outside urologist w/ dysuria. Does not know ucx results. States sxs resolved with meds until yesterday See exam UTI S/p cefuroxime 2 weeks ago by outside urologist (does not know ucx results) No e/o pyelo at this time but has h/o complicated UTI w/ esbl ecoli that resolved w/ ertapenem (sensitive to macrobid as well on ucx 10/26) Stable and well dominic w/ unremarkable exam -ua sent from triage -will send labs -discuss dispo w/ main ED attg 04/09/17 15:41 Case discussed with patient's PMD, Dr. Alvarez who dates. Patient has a history of recurrent UTIs with normal cystoscopy during last admission. States if labs are unremarkable can send patient home on Macrobid to follow-up with her urologist 04/09/17 15:41 04/09/17 16:47 Bld on UA w/ unremarkable labs. As d/w PMD, will dc a/ abx. Return precautions given to patient. Patient to follow-up with PMD and urologist *DC/Admit/Observation/Transfer Diagnosis at time of Disposition: Urinary frequency UTI (urinary tract infection) Qualifiers: Urinary tract infection type: acute cystitis Hematuria presence: without hematuria Qualified Code(s): N30.00 - Acute cystitis without hematuria - Discharge Dispostion Disposition: HOME Condition at time of disposition: Good - Prescriptions Prescriptions: Nitrofurantoin Monohyd/M-Cryst [Macrobid -] 100 mg PO BID #13 capsule - Referrals Referrals: Saji Alvarez MD [Primary Care Provider] - - Patient Instructions Printed Discharge Instructions: DI for Urinary Tract Infection (UTI) Additional Instructions: Take antibiotics as prescribed. If symptoms persist and/or worsen, return to ER immediately, otherwise follow- up with your urologist and PMD - Post Discharge Activity
[2017-04-09 15:37] LABS: BASO % 0.4 % (0-2.0); EOS % 0.4 % (0-4.5); HEMATOCRIT 44.3 % (32.4-45.2); HEMOGLOBIN 14.8 GM/dL (10.7-15.3); MCH 30.8 pg (25.7-33.7); MCHC 33.4 g/dl (32.0-36.0); MEAN PLT VOLUME 9.9 fl (7.5-11.1); MONO % 3.4 % (3.8-10.2); NEUT % 85.8 % (42.8-82.8); PLATELET COUNT 247 K/MM3 (134-434); RBC 4.82 M/mm3 (3.60-5.2); RDW 13.2 % (11.6-15.6); WHITE BLOOD COUNT 10.9 K/mm3 (4.0-10.0)
[2017-04-09] MEDS ORDERED: NITROFURANTOIN MACROCRYSTAL 50 MG CAPSULE (FP) PO SCH (15:45)
[2017-04-09] MEDS ORDERED: NITROFURANTOIN MACROCRYSTAL 50 MG CAPSULE (FP) ONE (15:56)
[2017-04-09 16:11] LABS: ALBUMIN 4.1 g/dl (3.4-5.0); ANION GAP 8 (8-16); BLOOD UREA NITROGEN 16 mg/dL (7-18); CALCIUM 9.2 mg/dL (8.5-10.1); CHLORIDE 103 mmol/L (98-107); CO2 28 mmol/L (21-32); CREATININE 0.9 mg/dL (0.55-1.02); GLUCOSE,RANDOM 106 mg/dL (74-106); POTASSIUM 3.8 mmol/L (3.5-5.1); SGOT/AST 24 U/L (15-37); SGPT/ALT 36 U/L (12-78); SODIUM 139 mmol/L (136-145); TOT PROT 8.1 g/dl (6.4-8.2)
[2017-04-09 16:12] LABS: ALK PHOS 85 U/L (45-117)
== END 2017-04-09 16:57 | disposition home or self-care (01) ==
LOC: JERFT 14:43
DX: N30.00 Acute cystitis without hematuria (principal); E78.00 Pure hypercholesterolemia, unspecified; K21.9 Gastro-esophageal reflux disease without esophagitis; E89.0 Postprocedural hypothyroidism
CPT/HCPCS: 36415; 80053; 81003; 81015; 85025; 87040; 87086; 99281-25

== ENCOUNTER 2018-05-31 06:17 | Day surgery (SDC) | payer OTHER ==
[2018-05-30 14:33] VITALS: BMI 23.3
[2018-05-31] MEDS ORDERED: BUPIVACAINE HCL/PF 0.5% (5MG/ML) 10 ML VIAL ONE (07:31)
--- NOTE | 2018-05-31 07:52 | HP ---
History & Physical Update - History History: No Change - Physical Physical: No Change - Assessment Assessment: No Change (no change since visit on 05/27/18) - Plan Plan: No Change
[2018-05-31] MEDS ORDERED: MIDAZOLAM HCL 2 MG/2 ML SINGLE DOSE VIAL ONE (08:03)
[2018-05-31] MEDS ORDERED: ETOMIDATE 20 MG/10 ML AMPUL IVPUSH ONE (08:33)
[2018-05-31] MEDS ORDERED: ROCURONIUM BROMIDE 50 MG/5 ML VIAL ONE (08:35)
[2018-05-31] MEDS ORDERED: ceFAZolin SODIUM 1 GM VIAL IVPB ONE (08:39)
[2018-05-31] MEDS ORDERED: BUPIVACAINE HCL/PF (5 MG/ML) 30 ML VIAL IJ ONE (08:53)
--- NOTE | 2018-05-31 09:29 | OP ---
Operative Note - Note: Operative Date: 05/31/18 Pre-Operative Diagnosis: symptomatic gallbladder polyp Operation: laparoscopic cholecystectomy Findings: floppy GB Post-Operative Diagnosis: Same as Pre-op Surgeon: Reddy Gonzalez [employer] Operator: Kasia Kaufman Anesthesia: General Specimens Removed: gallbladder Estimated Blood Loss (mls): 1 Operative Report Dictated: Yes
[2018-05-31] MEDS ORDERED: DEXAMETHASONE SOD PHOSPHATE 4 MG/1 ML VIAL ONE (09:30)
[2018-05-31] MEDS ORDERED: GLYCOPYRROLATE 0.2 MG/1 ML VIAL ONE (09:30)
[2018-05-31] MEDS ORDERED: ceFAZolin SODIUM 1 GM VIAL ONE (09:30)
[2018-05-31] MEDS ORDERED: KETOROLAC TROMETHAMINE 30 MG/1 ML VIAL ONE (09:30)
[2018-05-31] MEDS ORDERED: NEOSTIGMINE METHYLSULFATE 0.5 MG/ML - 10 ML MDV ONE (09:31)
--- NOTE | 2018-05-31 10:01 | SURG ---
Surgery Lease Purchase Driver Note Lease Purchase Driver: Kasia Kaufman PA-C Date of Service: 05/31/18 Diagnosis: symptomatic gallbladder polyp Procedure: laparoscopic cholecystectomy I was present for the entirety of the operative procedure. For further detail, please refer to operative report. Visit type - Case Type Case Type: Scheduled - Emergency Emergency Visit: No - New patient This patient is new to me today: Yes Date on this admission: 05/31/18
[2018-05-31] MEDS ORDERED: PROMETHAZINE HCL 25 MG/1 ML VIAL IVPB PRN (10:06)
[2018-05-31] MEDS ORDERED: oxyCODONE HCL 5 MG TABLET PO PRN (10:06)
[2018-05-31] MEDS ORDERED: ONDANSETRON 4 MG/2 ML VIAL IVPUSH PRN (10:06)
[2018-05-31] MEDS ORDERED: LACTATED RINGERS SOLUTION 1,000 ML IV SCH (10:15)
--- NOTE | 2018-05-31 10:55 | OP ---
DATE OF OPERATION: 05/31/2018 PROCEDURE: Laparoscopic cholecystectomy. PREOPERATIVE DIAGNOSIS: Gallbladder polyp. POSTOPERATIVE DIAGNOSIS: Gallbladder polyp. SURGEON: Reddy Gonzalez MD BIOLOGICAL ENGINEER: Kasia Kaufman RPA ANESTHESIA: General endotracheal. FINDINGS ON PROCEDURE: This is a 57-year-old female who presents with chronic upper abdominal pain at the right upper quadrant and the epigastric area with GI workup consisting of endoscopy, colonoscopy, and gallbladder ultrasound. A HIDA scan revealed a gallbladder polyp that slowly grew in size from 4 mm to 6 mm over a span of more than 1 year. Due to the symptoms and the increase in the growth of the gallbladder polyp, patient was advised elective cholecystectomy, and consent was obtained after discussing the risks, benefits, and alternatives of the procedure. DESCRIPTION OF PROCEDURE: Patient was brought to the operating room and placed in supine position. General endotracheal anesthesia was administered. The abdomen was prepped and draped in the usual sterile fashion. Using 0.5% Marcaine, local anesthesia was administered to the proposed incision sites. The peritoneal cavity was entered using the Optiview technique with a 5-mm umbilical incision using the 5-mm 0-degree scope inserted in a 5-mm optical port. Pneumoperitoneum was established. The patient was then placed in reverse Trendelenburg [id number] position. An 11-mm port was inserted at the subxiphoid region and two 5-mm ports were inserted at the right subcostal region at the midclavicular and anterior axillary lines. The peritoneal cavity was carefully inspected and was noted to be free of inadvertent injury. The gallbladder was noted to be fluffy, and the fundus was grasped and retracted anterior superiorly. The infundibulum was grasped and retracted inferolaterally to expose the hepatocystic triangle. The visceral peritoneum covering the triangle was scored using the hook dissector connected to monopolar cautery. Dissection was carried towards the proximal gallbladder bed to create the critical view of safety. The cystic duct and cystic artery were identified and isolated using the hook dissector. The cystic duct and cystic artery were then clipped at 3 points followed by transection leaving 2 clips at each cystic duct and cystic artery stump. The gallbladder was resected from its bed in antegrade fashion using the hook dissector connected to monopolar cautery. After this was completed, the gallbladder was placed in an Endobag and extracted via the subxiphoid incision. The gallbladder bed was inspected and was noted to be free of active bleeding, and the clips were noted to be intact and in place. The pneumoperitoneum was evacuated, and the ports were removed. The wounds were closed with subcuticular Biosyn 4-0 sutures reinforced with Dermabond. The patient was successfully extubated and transferred to the post-anesthesia care unit in satisfactory condition. ESTIMATED BLOOD LOSS: About 1 mL. WOUND CLASS: Clean-contaminated. The patient received 2 g of Ancef prior to the start of the procedure. Louisa [id number]
[2018-05-31 11:40] VITALS: TEMP 97.6
[2018-05-31 14:16] VITALS: BP 120/76; PULSE 85
--- NOTE | 2018-06-03 14:52 | PATH ---
Surgical Pathology Report Patient Name: JAMIL TATE [facility]. Rec. #: [id number] /Age/Gender: 1960 (Age: 57) / F Account: [id number] Location: [facility] SURGICAL Taken: 05/31/2018 Received: 05/31/2018 Reported: 06/03/2018 Physicians: Reddy Gonzalez M.D. Specimen(s) Received GALLBLADDER Clinical History Gallbladder polyp Final Diagnosis GALLBLADDER, LAPAROSCOPIC CHOLECYSTECTOMY: CHRONIC CHOLECYSTITIS WITH CHOLESTEROLOSIS. Electronically Signed Susan Spence M.D. Gross Description Received in formalin, labeled "gallbladder," is an 8.3 x 3.8 x 3.4 cm. gallbladder with a 0.2 cm. in length portion of cystic duct attached. The outer surface is arreaga-pink and varies from smooth to shaggy. The lumen contains green, tenacious bile. There are no choleliths identified within the lumen or within the container. The mucosa is green with gold cholesterol stippling. There is no polypoid lesion identified. The wall of the gallbladder ranges from 0.1-0.4 cm. in thickness. Pearl Maker sections are submitted in one cassette. /05/31/2018 saudi05/31/2018
== END 2018-05-31 14:00 | disposition home or self-care (01) ==
LOC: JASU-SURG 06:17
PROVIDERS: ATTEND Surgery
PROC: 0FT44ZZ Resection of Gallbladder, Percutaneous Endoscopic Approach (ICD-10-PCS; principal; 2018-05-31 08:00)
DX: K82.4 Cholesterolosis of gallbladder (principal)
CPT/HCPCS: 88304-TC; 94760